=== PATIENT | female | born 1980 | race Caucasian/White ===

== ENCOUNTER → 2017-07-08 | Outpatient (CLI) | payer BC ==
--- NOTE | 2017-07-08 10:42 | DIAGNOSTIC IMAGING REPORT ---
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 TECHNIQUE: PA and lateral views of the chest were obtained. COMPARISON: 03/22/2016. FINDINGS: Cardiomediastinal silhouette normal. Lungs and pleural spaces clear. Osseous structures normal. Upper abdomen normal. IMPRESSION: 1. No acute cardiopulmonary disease. Electronically signed by: Rhys Matias M.D. 07/08/2017 10:40 AM Dictated Date/Time: 07/08/2017 10:39 AM
== END | disposition home or self-care (01) ==
LOC: C.RAD 09:39
PROVIDERS: ATTEND Family Medicine
DX: R76.12 Nonspecific reaction to cell mediated immunity measurement of gamma interferon antigen response without active tuberculosis (principal)

== ENCOUNTER 2024-11-19 16:53 | Observation (INO) ==
--- NOTE | 2024-11-19 17:21 | Emergency Department Note ---
Impression & Plan Transient cerebral ischemia, Headache, Complaint of paresthesia ED Provider Note NAME: AIDAN DAIGLE AGE: 44 SEX: F : 1980 ARRIVES VIA: Walk-In INFORMANT: Patient ED PROVIDER(S): Jet Ervin DO CHIEF COMPLAINT: Right-sided tingling HPI: Patient is a 44-year-old female who presents to the ER with a past medical history of of allergic reactions for right-sided headache which has been coming going for the past week. She notes that today around 12:00 she started noticing tingling around her right eye, on the right arm down to the elbow and on the right leg down to the knee. This comes and goes. Last for several seconds at a time. She denies any weakness. No chest pain or shortness of breath. No nausea, vomiting, or diarrhea. No dysuria, urgency, or frequency. ADDITIONAL HISTORY OBTAINED: Per HPI Chronic Medical/Social Conditions Affecting Care: Per HPI PAST MEDICAL HISTORY:See Below PAST SURGICAL HISTORY:See Below FAMILY HISTORY:See Below SOCIAL HISTORY:See Below HOME MEDICATIONS:See Below ALLERGIES:See Below VITALS:See Below PHYSICAL EXAMINATION: GENERAL: Sitting up in bed, alert, well appearing, well nourished, no distress, non-toxic EYE EXAM: normal conjunctiva. PERRL and EOM's intact. OROPHARYNX: no exudate, no erythema, lips, buccal mucosa, and tongue normal and mucous membranes are moist NECK: supple, no nuchal rigidity, no adenopathy, non-tender LUNGS: Clear to auscultation. Normal chest wall mechanics HEART: no murmurs, S1 normal and S2 normal ABDOMEN: abdomen soft, non-tender, normo-active bowel sounds, no masses, no rebound or guarding. BACK: Back is symmetrical on inspection and there is no deformity, no midline tenderness, no CVA tenderness. SKIN: no rashes and no bruising UPPER EXTREMITIES: upper extremities are grossly normal. LOWER EXTREMITIES: No pitting edema. NEURO EXAM: Normal sensorium, cranial nerves II-XII intact, normal speech, no weakness of arms, no weakness of legs. No drift. Finger to nose intact. Gross sensation intact. MEDICAL DECISION MAKING: Patient is a 44-year-old female who presents ER for the above-stated complaint. IV was established and blood work was obtained. [facility] acute care called in and noted right-sided facial tingling but no weakness. Upon arrival stroke alert was called by nursing staff in triage. Labs show no significant leukocytosis or anemia. INR was unremarkable. BMP with LFTs, bilirubin, and troponin was negative. CT angios of the head and neck were negative. [facility] evaluate the patient. He recommend admission for full stroke workup as well as aspirin and MRIs. Discussed case with the hospitalist for further evaluation management treatment. Consults/Care Managements Discussions: Per [facility] Triage Nursing notes reviewed. Limited review of prior medical records performed Vital Signs: reviewed and remarkable for no significant abnormalities Differential diagnosis: Differential Diagnosis includes but is not limited to ischemic Stroke, hemorrhagic stroke, bells palsy, mass, neoplasm, migraine headache, seizure, subarachnoid hemorrhage, TIA, and transient global amnesia. ER treatment provided: See below Diagnostics interpreted by me include EKG and cardiac monitoring as listed below: -Cardiac Monitoring: An order was placed for continuous cardiac monitoring. The monitor shows a rate of 80 with sinus rhythm. -ECG: Sinus rhythm rate of 65 Normal axis No PVCs QTc 430 -Laboratory studies:Interpreted by me as stated above in MDM and shown below. Imaging studies: Xrays: As interpreted by me:none CTs show: CT of the head per my preliminary interpreted and showed no obvious large bleed CT angios of the head and neck were negative per radiology Procedures:none Critical Care: None Past Med/Surg History Problem List (Updated 11/19/24 @ 23:20 by Jet Ervin DO) Complaint of paresthesia (Acute) Headache (Acute) Transient cerebral ischemia (Acute) Numbness of face Allergic reaction Allergic contact dermatitis Social History Smoking Status: Never smoker Preferred Language: Swedish Feels Safe at Home: Yes Allergies Allergies Allergy/AdvReac Type Severity Reaction Status Date / Time pollen extracts Allergy Congested Unverified 11/19/24 19:21 Home Meds Home Medications Medication Instructions Recorded Confirmed loratadine 10 mg tablet (Claritin) 10 mg PO DAILY PRN ALLERGIES 08/19/19 11/19/24 albuterol sulfate 90 mcg/actuation 1 puff inhalation . EVERY 4 TO 6 11/19/24 11/19/24 aerosol inhaler HOURS PRN CHEST TIGHTNESS estradiol 0.01% (0.1 mg/gram) 0.5 g vaginal TW 11/19/24 11/19/24 vaginal cream propranolol 10 mg tablet 10 mg PO . NEEDED PRN FOR 11/19/24 11/19/24 SITUATIONAL ANXIETY UP TO 2 A DAY vortioxetine 10 mg tablet 10 mg PO DAILY PRN DEPRESSION 11/19/24 11/19/24 (Trintellix) Results & Data (ED) Vital Signs Vital Signs - 24 hr 11/19/24 17:06 11/19/24 18:21 11/19/24 19:54 Temperature 36.7 C Temperature Source Temporal Artery Scan Pulse Rate 76 77 Pulse Rate [Apical] 78 Respiratory Rate 20 20 Respiratory Effort / Characteristics Non-Labored Spontaneous Respiratory Depth Normal Respiratory Pattern Regular Blood Pressure 112/74 Blood Pressure [Left Arm] 125/54 L Blood Pressure Mean 86 Blood Pressure Mean [Left Arm] 77 Blood Pressure Position [Left Arm] Sitting Pulse Oximetry 98 98 Oxygen Delivery Method Room Air Room Air Sepsis Recent Fever Within 48 Hours No Sepsis New/Unexplained Change in Mental Status N/A Sepsis Action Taken by Nursing No Action Required Laboratory Data 11/19/24 17:23 11/19/24 17:23 Lab Results 11/19/24 11/19/24 Range/Units 17:23 17:27 WBC 6.95 (4.8-10.8) K/ul RBC 6.12 H (4.20-5.40) M/uL Hgb 13.5 (12.0-16.0) g/dl POC Hgb 14.6 (12.0-16.0) g/dl Hct 42.3 (37.0-47.0) % POC Hct 43 (37-47) % MCV 69.1 L (80.0-100.0) fL MCH 22.1 L (25.0-34.0) pg MCHC 31.9 L (32.0-36.0) g/dL RDW Std Deviation 35.7 L (36.4-46.3) fL RDW Coeff of Gracy 14.6 H (11.5-14.5) % Plt Count 261 (130-400) K/uL MPV 10.8 (9.4-12.4) fL Immature Gran % (Auto) 0.1 % Neut % (Auto) 54.0 % Lymph % (Auto) 35.5 % [place] % (Auto) 8.3 % Eos % (Auto) 1.4 % Baso % (Auto) 0.7 % Neut # (Auto) 3.74 (1.40-6.50) K/uL Lymph # (Auto) 2.47 (1.20-3.40) K/uL [place] # (Auto) 0.58 (0.11-0.59) K/uL Eos # (Auto) 0.10 (0.00-0.50) K/uL Baso # (Auto) 0.05 (0.00-0.20) K/uL Immature Gran # (Auto) 0.01 (0.01-0.20) K/uL Microcytosis Present PT 11.3 (9.0-12.0) Seconds INR 1.0 (0.9-1.1) APTT 27 (21-31) Seconds PTT Ratio 1.0 POC Sodium 139 (135-144) mmol/L Sodium 140 (136-145) mmol/L POC Potassium 3.7 (3.3-5.0) mmol/L Potassium 3.7 (3.5-5.1) mmol/L POC Chloride 99 L (101-112) mmol/L Chloride 101 (98-107) mmol/L Carbon Dioxide 31 (21-32) mmol/L POC Total CO2 28 (24-31) mmol/L Anion Gap 8 (3-11) POC Anion Gap 16.0 (16-25) mmol/L POC BUN 11 (7-18) mg/dl BUN 12 (6-23) mg/dl Creatinine 0.62 (0.6-1.2) mg/dl POC Creatinine 0.7 (0.6-1.3) mg/dl Est Cr Clr Drug Dosing 118.3 ml/min eGFR 112.55 BUN/Creatinine Ratio 19.4 (10-20) Glucose 85 (70-99(Fasting)) mg/dl POC Glucose (other) 86 (70-99) mg/dl Calcium 9.4 (8.6-10.3) mg/dl POC Ioniz Calcium Liliana 1.16 (1.12-1.32) mmol/l Magnesium 1.8 (1.7-2.4) mg/dl Total Bilirubin 0.9 (0.2-1.0) mg/dl AST 17 (13-39) U/L ALT 12 (7-52) U/L Alkaline Phosphatase 49 (34-104) U/L Troponin I High Sens < 2.3 (0-14) pg/ml Total Protein 7.6 (6.0-8.3) gm/dl Albumin 4.5 (3.4-5.0) gm/dl Globulin 3.1 (2.5-4.0) gm/dl Albumin/Globulin Ratio 1.5 (0.9-2) Administered Medications Discontinued Medications Acetaminophen (Acetaminophen 325 Mg Tab) 650 mg PO NOW STA Stop: 11/19/24 19:14 Last Admin: 11/19/24 19:47 Dose: 650 mg Documented By: Aspirin (Aspirin Chew 324 Mg) 324 mg PO NOW STA Stop: 11/19/24 19:14 Last Admin: 11/19/24 19:47 Dose: 162.5 mg Documented By: Ioversol (Optiray 320 125ml) 115 ml IV ONCE ONE Stop: 11/19/24 17:32 Last Admin: 11/19/24 17:32 Dose: 115 ml Documented By: RUEL Imaging Data Radiologist's Impression: Head CT 11/19/24 17:18 EXAM: CT Head Without Intravenous Contrast INDICATION: Right numbness and tingling. TECHNIQUE: Axial computed tomography images of the head/brain without intravenous contrast. Sagittal and/or coronal reformats are provided. Sagittal and coronal reformatted images were created and reviewed. This CT exam was performed using one or more of the following dose reduction techniques: automated exposure control, adjustment of the mA and/or kV according to patient size, and/or use of iterative reconstruction technique. COMPARISON: No relevant prior studies available. FINDINGS: Limitations: None. Brain and extra-axial spaces: No abnormality noted. No hemorrhage. No significant white matter disease. No edema. No ventriculomegaly. Bones/joints: No acute changes. Soft tissues: No significant abnormality noted. Vasculature: No acute abnormality noted. Sinuses: No layering fluid in the visualized portions of the paranasal sinuses. Mastoid air cells: No mastoid effusion. Orbits: No significant abnormality noted. IMPRESSION: No abnormality noted. Findings discussed by phone with Dr. Ervin at 5:49 PM 11/19/2024. ACT 112: Negative or not required by law. Electronically signed by Agustina Campoverde 11-19-2024 5:52 PM Head CTA 11/19/24 17:18 EXAM: CT Angiography Head and Neck With Intravenous Contrast INDICATION: Right numbness and tingling. TECHNIQUE: [place] [facility] [place]/head and neck CT angiography protocol performed with intravenous contrast. Sagittal and coronal reformatted images were created and reviewed. This CT exam was performed using one or more of the following dose reduction techniques: automated exposure control, adjustment of the mA and/or kV according to patient size, and/or use of iterative reconstruction technique. MIP reconstructed images were created and reviewed. CONTRAST: 115ml of Optiray 320 was administered intravenously. COMPARISON: None. FINDINGS: HEAD: Right anterior cerebral artery: No abnormality noted. No occlusion or significant stenosis. Anterior communicating artery is present. No aneurysm. Right middle cerebral artery: No abnormality noted. No occlusion or significant stenosis. No aneurysm. Right posterior cerebral artery: No abnormality noted. No occlusion or significant stenosis. No aneurysm. Right intracranial internal carotid artery: No abnormality noted. No significant stenosis. No dissection or occlusion. Right intracranial vertebral artery: Dominant. No significant stenosis. No dissection or occlusion. Left anterior cerebral artery: Hypoplastic A1 segment with reconstitution via the communicating. No occlusion or significant stenosis. No aneurysm. Left middle cerebral artery: No abnormality noted. No occlusion or significant stenosis. No aneurysm. Left posterior cerebral artery: No abnormality noted. No occlusion or significant stenosis. No aneurysm. Left intracranial internal carotid artery: No abnormality noted. No significant stenosis. No dissection or occlusion. Left intracranial vertebral artery: Diminutive. No significant stenosis. No dissection or occlusion. Basilar artery: No abnormality noted. No occlusion or significant stenosis. No aneurysm. Other vasculature: No vascular malformation. Patent dural venous sinuses. NECK: Right common carotid artery: No abnormality noted. No significant stenosis. No dissection or occlusion. Right extracranial internal carotid artery: No abnormality noted. No significant stenosis. No dissection or occlusion. Right external carotid artery: No abnormality noted. No occlusion. Right extracranial vertebral artery: No abnormality noted. No significant stenosis. No dissection or occlusion. Left common carotid artery: No abnormality noted. No significant stenosis. No dissection or occlusion. Left extracranial internal carotid artery: No abnormality noted. No significant stenosis. No dissection or occlusion. Left external carotid artery: No abnormality noted. No occlusion. Left extracranial vertebral artery: Dominant. No significant stenosis. No dissection or occlusion. Lung apices: No significant abnormality noted. HEAD and NECK: Bones/joints: No significant abnormality. Soft tissues: No abnormality noted. CAROTID STENOSIS REFERENCE USING NASCET CRITERIA: % ICA stenosis = (1 - narrowest ICA diameter/diameter of distal cervical ICA) x 100. Mild - <50% stenosis. Moderate - 50-69% stenosis. Severe - 70-94% stenosis. Near occlusion - 95-99% stenosis. Occluded - 100% stenosis. IMPRESSION: Negative CTA carotid and CTA brain. Findings discussed by phone with Dr. Ervin at 5:49 PM 11/19/2024. ACT 112: Negative or not required by law. Electronically signed by Agustina Campoverde 11-19-2024 5:52 PM Neck CTA 11/19/24 17:18 EXAM: CT Angiography Head and Neck With Intravenous Contrast INDICATION: Right numbness and tingling. TECHNIQUE: [place] [facility] [place]/head and neck CT angiography protocol performed with intravenous contrast. Sagittal and coronal reformatted images were created and reviewed. This CT exam was performed using one or more of the following dose reduction techniques: automated exposure control, adjustment of the mA and/or kV according to patient size, and/or use of iterative reconstruction technique. MIP reconstructed images were created and reviewed. CONTRAST: 115ml of Optiray 320 was administered intravenously. COMPARISON: None. FINDINGS: HEAD: Right anterior cerebral artery: No abnormality noted. No occlusion or significant stenosis. Anterior communicating artery is present. No aneurysm. Right middle cerebral artery: No abnormality noted. No occlusion or significant stenosis. No aneurysm. Right posterior cerebral artery: No abnormality noted. No occlusion or significant stenosis. No aneurysm. Right intracranial internal carotid artery: No abnormality noted. No significant stenosis. No dissection or occlusion. Right intracranial vertebral artery: Dominant. No significant stenosis. No dissection or occlusion. Left anterior cerebral artery: Hypoplastic A1 segment with reconstitution via the communicating. No occlusion or significant stenosis. No aneurysm. Left middle cerebral artery: No abnormality noted. No occlusion or significant stenosis. No aneurysm. Left posterior cerebral artery: No abnormality noted. No occlusion or significant stenosis. No aneurysm. Left intracranial internal carotid artery: No abnormality noted. No significant stenosis. No dissection or occlusion. Left intracranial vertebral artery: Diminutive. No significant stenosis. No dissection or occlusion. Basilar artery: No abnormality noted. No occlusion or significant stenosis. No aneurysm. Other vasculature: No vascular malformation. Patent dural venous sinuses. NECK: Right common carotid artery: No abnormality noted. No significant stenosis. No dissection or occlusion. Right extracranial internal carotid artery: No abnormality noted. No significant stenosis. No dissection or occlusion. Right external carotid artery: No abnormality noted. No occlusion. Right extracranial vertebral artery: No abnormality noted. No significant stenosis. No dissection or occlusion. Left common carotid artery: No abnormality noted. No significant stenosis. No dissection or occlusion. Left extracranial internal carotid artery: No abnormality noted. No significant stenosis. No dissection or occlusion. Left external carotid artery: No abnormality noted. No occlusion. Left extracranial vertebral artery: Dominant. No significant stenosis. No dissection or occlusion. Lung apices: No significant abnormality noted. HEAD and NECK: Bones/joints: No significant abnormality. Soft tissues: No abnormality noted. CAROTID STENOSIS REFERENCE USING NASCET CRITERIA: % ICA stenosis = (1 - narrowest ICA diameter/diameter of distal cervical ICA) x 100. Mild - <50% stenosis. Moderate - 50-69% stenosis. Severe - 70-94% stenosis. Near occlusion - 95-99% stenosis. Occluded - 100% stenosis. IMPRESSION: Negative CTA carotid and CTA brain. Findings discussed by phone with Dr. Ervin at 5:49 PM 11/19/2024. ACT 112: Negative or not required by law. Electronically signed by Agustina Campoverde 11-19-2024 5:52 PM Discharge Plan Visit Data Chief Complaint: TIA Symptoms Stated Complaint: NUMBNESS RT SIDE, HEADACHE, PINS AND NEEDLES ED Provider: Jet Ervin Discharge Problem: Transient cerebral ischemia, Headache, Complaint of paresthesia Patient Disposition: Admitted As Inpatient Discharge Instructions Interventions: ED Discharge Assessment Last Done: 11/19/24 23:04 Discharge Problem: Transient cerebral ischemia Qualifiers: Transient cerebral ischemia type: other Qualified Code(s): G45.8 - Other transient cerebral ischemic attacks and related syndromes Headache Qualifiers: Headache type: unspecified Headache chronicity pattern: unspecified pattern
[2024-11-19] MEDS: OPTIRAY 320 125ml IV ONE (17:32)
[2024-11-19 17:39] LABS: iSTAT Creatinine 0.7 mg/dl (0.6-1.3); iSTAT Hemoglobin 14.6 g/dl (12.0-16.0); iSTAT Ionized Calcium 1.16 mmol/l (1.12-1.32); iSTAT Potassium 3.7 mmol/L (3.3-5.0)
[2024-11-19 17:42] LABS: Basophils # (auto) 0.05 K/uL (0.00-0.20); Basophils % (auto) 0.7 %; Eosinophils % (auto) 1.4 %; Hematocrit (blood only) 42.3 % (37.0-47.0); Hemoglobin 13.5 g/dl (12.0-16.0); Immature Granulocytes # (auto) 0.01 K/uL (0.01-0.20); Immature Granulocytes % (auto) 0.1 %; Lymphocytes # (auto) 2.47 K/uL (1.20-3.40); Lymphocytes % (auto) 35.5 %; Mean Corpuscular Hemoglobin 22.1 pg (25.0-34.0); Mean Corpuscular Hgb Conc 31.9 g/dL (32.0-36.0); Mean Corpuscular Volume 69.1 fL (80.0-100.0); Monocytes # (auto) 0.58 K/uL (0.11-0.59); Monocytes % (auto) 8.3 %; Neutrophils # (auto) 3.74 K/uL (1.40-6.50); RDW Coefficient of Variation 14.6 % (11.5-14.5); RDW Standard Deviation 35.7 fL (36.4-46.3); Red Blood Count 6.12 M/uL (4.20-5.40); White Blood Count 6.95 K/ul (4.8-10.8)
--- NOTE | 2024-11-19 17:52 | CT Scan Report ---
EXAM: CT Head Without Intravenous Contrast INDICATION: Right numbness and tingling. TECHNIQUE: Axial computed tomography images of the head/brain without intravenous contrast. Sagittal and/or coronal reformats are provided. Sagittal and coronal reformatted images were created and reviewed. This CT exam was performed using one or more of the following dose reduction techniques: automated exposure control, adjustment of the mA and/or kV according to patient size, and/or use of iterative reconstruction technique. COMPARISON: No relevant prior studies available. FINDINGS: Limitations: None. Brain and extra-axial spaces: No abnormality noted. No hemorrhage. No significant white matter disease. No edema. No ventriculomegaly. Bones/joints: No acute changes. Soft tissues: No significant abnormality noted. Vasculature: No acute abnormality noted. Sinuses: No layering fluid in the visualized portions of the paranasal sinuses. Mastoid air cells: No mastoid effusion. Orbits: No significant abnormality noted. IMPRESSION: No abnormality noted. Findings discussed by phone with Dr. Ervin at 5:49 PM 11/19/2024. ACT 112: Negative or not required by law. Electronically signed by Agustina Campoverde 11-19-2024 5:52 PM
--- NOTE | 2024-11-19 17:52 | CT Scan Report ---
EXAM: CT Angiography Head and Neck With Intravenous Contrast INDICATION: Right numbness and tingling. TECHNIQUE: [place] [facility]/head and neck CT angiography protocol performed with intravenous contrast. Sagittal and coronal reformatted images were created and reviewed. This CT exam was performed using one or more of the following dose reduction techniques: automated exposure control, adjustment of the mA and/or kV according to patient size, and/or use of iterative reconstruction technique. MIP reconstructed images were created and reviewed. CONTRAST: 115ml of Optiray 320 was administered intravenously. COMPARISON: None. FINDINGS: HEAD: Right anterior cerebral artery: No abnormality noted. No occlusion or significant stenosis. Anterior communicating artery is present. No aneurysm. Right middle cerebral artery: No abnormality noted. No occlusion or significant stenosis. No aneurysm. Right posterior cerebral artery: No abnormality noted. No occlusion or significant stenosis. No aneurysm. Right intracranial internal carotid artery: No abnormality noted. No significant stenosis. No dissection or occlusion. Right intracranial vertebral artery: Dominant. No significant stenosis. No dissection or occlusion. Left anterior cerebral artery: Hypoplastic A1 segment with reconstitution via the communicating. No occlusion or significant stenosis. No aneurysm. Left middle cerebral artery: No abnormality noted. No occlusion or significant stenosis. No aneurysm. Left posterior cerebral artery: No abnormality noted. No occlusion or significant stenosis. No aneurysm. Left intracranial internal carotid artery: No abnormality noted. No significant stenosis. No dissection or occlusion. Left intracranial vertebral artery: Diminutive. No significant stenosis. No dissection or occlusion. Basilar artery: No abnormality noted. No occlusion or significant stenosis. No aneurysm. Other vasculature: No vascular malformation. Patent dural venous sinuses. NECK: Right common carotid artery: No abnormality noted. No significant stenosis. No dissection or occlusion. Right extracranial internal carotid artery: No abnormality noted. No significant stenosis. No dissection or occlusion. Right external carotid artery: No abnormality noted. No occlusion. Right extracranial vertebral artery: No abnormality noted. No significant stenosis. No dissection or occlusion. Left common carotid artery: No abnormality noted. No significant stenosis. No dissection or occlusion. Left extracranial internal carotid artery: No abnormality noted. No significant stenosis. No dissection or occlusion. Left external carotid artery: No abnormality noted. No occlusion. Left extracranial vertebral artery: Dominant. No significant stenosis. No dissection or occlusion. Lung apices: No significant abnormality noted. HEAD and NECK: Bones/joints: No significant abnormality. Soft tissues: No abnormality noted. CAROTID STENOSIS REFERENCE USING NASCET CRITERIA: % ICA stenosis = (1 - narrowest ICA diameter/diameter of distal cervical ICA) x 100. Mild - <50% stenosis. Moderate - 50-69% stenosis. Severe - 70-94% stenosis. Near occlusion - 95-99% stenosis. Occluded - 100% stenosis. IMPRESSION: Negative CTA carotid and CTA brain. Findings discussed by phone with Dr. Ervin at 5:49 PM 11/19/2024. ACT 112: Negative or not required by law. Electronically signed by Agustina Campoverde 11-19-2024 5:52 PM
[2024-11-19 18:00] LABS: Alanine Aminotransferase 12 U/L (7-52); Albumin Globulin Ratio 1.5 (0.9-2); Albumin Level 4.5 gm/dl (3.4-5.0); Alkaline Phosphatase 49 U/L (34-104); Anion Gap 8 (3-11); Aspartate Aminotransferase 17 U/L (13-39); BUN Creatinine Ratio 19.4 (10-20); Bilirubin,Total 0.9 mg/dl (0.2-1.0); Blood Urea Nitrogen 12 mg/dl (6-23); Calcium 9.4 mg/dl (8.6-10.3); Carbon Dioxide 31 mmol/L (21-32); Chloride 101 mmol/L (98-107); Creatinine Clr Calc Pharmacy 118.3 ml/min; Globulin 3.1 gm/dl (2.5-4.0); Glucose 85 mg/dl (70-99(Fasting)); Magnesium 1.8 mg/dl (1.7-2.4); Potassium 3.7 mmol/L (3.5-5.1); Sodium 140 mmol/L (136-145); Total Protein 7.6 gm/dl (6.0-8.3)
[2024-11-19 18:05] LABS: Troponin I High Sensitivity < 2.3 pg/ml (0-14)
[2024-11-19 18:08] LABS: Partial Thromboplastin Time 27 Seconds (21-31); Prothrombin Time 11.3 Seconds (9.0-12.0)
[2024-11-19 18:22] LABS: Mean Platelet Volume 10.8 fL (9.4-12.4); Microcytosis Present; Platelet Count 261 K/uL (130-400)
[2024-11-19] MEDS: ACETAMINOPHEN 325 MG TAB PO STA (19:47)
[2024-11-19] MEDS: ASPIRIN CHEW 324 MG PO STA (19:47)
--- NOTE | 2024-11-19 20:32 | History & Physical Report ---
Date of Service November 19, 2024 Assessment & Plan (1) Numbness of face: Plan 44-year-old female PMHx asthma and anxiety presenting for right-sided numbness starting around 1200 hours on the day of arrival. No history of migraines. ED evaluation reveals no evidence of leukocytosis, normal H&H, WNL CMP, troponin less than 2.3; head CT, head CTA/neck CTA all WNL; EKG normal sinus rate 65 bpm. Telestroke consulted, recommended aspirin at that time. #Numbness/tingling R side Presenting with approximately 1 week of right-sided headache and associated right hand numbness with pins and needle sensation along right cheek, right neck, right arm, right leg to the level of the knee. Numbness/dndr-kdq-zichsif lasting from [id number] on the day of arrival. No history of migraines; never had this happen before. ? suspicion for TIA vs migrainous component. - Telestroke consulted; recommending aspirin and workup - Neurochecks + NIHSS - CT head/CTA head/neck WNL; Echo Bubble pending - A1c, lipids pending; Vitamin B12 + folate pending - Troponin <2.3; EKG normal sinus rate 65 bpm - Continue aspirin daily; Labetalol 10mg IV prn q10min if SBP > 200 - MRI pending #Anxiety/depression- Propranolol as needed, Trintellix Dispo: Admit, med/tele VTE prophylaxis: Lovenox This document was dictated utilizing [employer]. Please excuse any grammatical errors that may be secondary to use of this software. Admission and Anticipated Discharge Date Admission Date: 11/19/2024 History of Present Illness Chief Complaint: Numbness R side Primary Care Provider: Tamim Marquez DO 44-year-old female PMHx asthma and anxiety presenting for right-sided numbness starting around 1200 hours on the day of arrival. Patient states that approximately 1 week ago she started to notice headache that is described as a shocking sensation that was along the right side of her head extending down into her neck on the right side and would come and go throughout the week prior to arrival. Began to notice some numbness at the R eyebrow of the day prior to arrival, but on the day of arrival she was having tingling and pins and needle sensation in the R eyebrow, cheek, neck, arm, and leg to the level of the knee. States that the symptoms lasted from approximately noon to 1600 hrs on the day of arrival. She also notes that a "few days ago" at 3 AM she was awoken by right sided head pain that went away in approximately 1 hour on its own without intervention. States that she does get headaches quite often, but no diagnosis of migraines in the past. When headaches start, she does feel that her heart is beating stronger than normal. No symptoms at the time of evaluation. Denying chest pain, SOB, palpitations, abdominal pain, N/V/D/C, weakness, syncope, lightheadedness, or dizziness. No fever or chills. Never had this happen befo re. ED evaluation reveals no evidence of leukocytosis, normal H&H, WNL CMP, troponin less than 2.3; head CT, head CTA/neck CTA all WNL; EKG normal sinus rate [address] Rubio's attestation for adjustments/additions to treatment plan. Allergies Allergy/AdvReac Type Severity Reaction Status Date / Time pollen extracts Allergy Congested Unverified 11/19/24 19:21 Home Medications Medication Instructions Recorded Confirmed Type loratadine 10 mg tablet (Claritin) 10 mg PO DAILY PRN ALLERGIES 08/19/19 11/19/24 History albuterol sulfate 90 mcg/actuation 1 puff inhalation . EVERY 4 TO 6 11/19/24 11/19/24 History aerosol inhaler HOURS PRN CHEST TIGHTNESS estradiol 0.01% (0.1 mg/gram) 0.5 g vaginal TW 11/19/24 11/19/24 History vaginal cream propranolol 10 mg tablet 10 mg PO . NEEDED PRN FOR 11/19/24 11/19/24 History SITUATIONAL ANXIETY UP TO 2 A DAY vortioxetine 10 mg tablet 10 mg PO DAILY PRN DEPRESSION 11/19/24 11/19/24 History (Trintellix) ipaxducfqz-uhkzlswafbhuy-xeqvpyun 1 cap PO Q8H PRN headache #14 caps 11/20/24 Rx 50 mg-300 mg-40 mg capsule (Fioricet) Past Med/Surg History Problem List (Updated 11/20/24 @ 13:32 by Lashon Munoz PA-C) Migraine headache Complaint of paresthesia (Acute) Headache (Acute) Transient cerebral ischemia (Acute) Numbness of face Allergic reaction Allergic contact dermatitis Social History Smoking Status: Never smoker Hx Alcohol Use: No Hx Substance Use: No Preferred Language: Mohawk Communication Ability: Effective Grass Farmer Required: No Beliefs That Will Affect Care: None Current Living Situation: Spouse and Family Feels Safe at Home: Yes Assistive Devices: Glasses Review of Systems Review of Systems: All systems reviewed & are unremarkable except as noted in Subjective Physical Exam Physical Exam: General: No acute distress Skin: Warm and dry Head: Normocephalic, atraumatic Eyes: PERRL, conjunctivae clear, sclera non-icteric; EOM intact; wearing glasses ENT: External ear and ear canal without swelling; nose atraumatic; good dentition, tongue normal appearance, pharynx normal Neck: Supple, no LAD Cardio: RRR, no M/G/R, S1 and S2 normal Resp: No respiratory distress, Lungs CTA in all lobes bilaterally, no wheezes, rales, or rhonchi Abdomen: Soft, symmetric, nontender; No masses or hepatosplenomegaly; Bowel sounds normoactive MSK: No deformities, full ROM throughout; pulses palpable and equal; no edema. Neuro: II- PERRL, no VF deficits III, IV, - EOMs intact, no deviation, no nystagmus V- Normal sensation in all locations VII- No asymmetry VIII- Normal hearing to speech IX, X- Normal palatal elevation, no ulnar deviation XI- 5/5 head turn + shoulder shrug bilaterally XII- Midline tongue protrusion Motor: 5/5 strength throughout BUE/BLE; no pronator drift Reflexes: WNL throughout Sensory: Normal sensation throughout, no hemineglect, Romberg absent Coordination: Normal sxuktz-ju-wrqn, no tremor Gait: Unable to asses; no complaints Psych: Tearful and feeling "nervous"; Appropriate mood and affect; good judgement and insight. does come into room during time of visit. Results & Data Results & Data Vital Signs (Past 12 Hours) Vital Signs Temp Pulse Pulse Resp BP BP Pulse Ox 11/19/24 19:54 78 20 125/54 L 98 11/19/24 18:21 77 11/19/24 17:06 36.7 C 76 20 112/74 98 O2 Del Method 11/19/24 19:54 Room Air 11/19/24 18:21 11/19/24 17:06 Room Air Laboratory Results 11/19/24 11/19/24 17:27 17:23 WBC 6.95 RBC 6.12 H Hgb 13.5 POC Hgb 14.6 Hct 42.3 POC Hct 43 MCV 69.1 L MCH 22.1 L MCHC 31.9 L RDW Std Deviation 35.7 L RDW Coeff of Gracy 14.6 H Plt Count 261 MPV 10.8 Immature Gran % (Auto) 0.1 Neut % (Auto) 54.0 Lymph % (Auto) 35.5 [place] % (Auto) 8.3 Eos % (Auto) 1.4 Baso % (Auto) 0.7 Neut # (Auto) 3.74 Lymph # (Auto) 2.47 [place] # (Auto) 0.58 Eos # (Auto) 0.10 Baso # (Auto) 0.05 Immature Gran # (Auto) 0.01 Microcytosis Present PT 11.3 INR 1.0 APTT 27 PTT Ratio 1.0 POC Sodium 139 Sodium 140 POC Potassium 3.7 Potassium 3.7 POC Chloride 99 L Chloride 101 Carbon Dioxide 31 POC Total CO2 28 Anion Gap 8 POC Anion Gap 16.0 POC BUN 11 BUN 12 Creatinine 0.62 POC Creatinine 0.7 Est Cr Clr Drug Dosing 118.3 eGFR 112.55 BUN/Creatinine Ratio 19.4 Glucose 85 POC Glucose (other) 86 Calcium 9.4 POC Ioniz Calcium Liliana 1.16 Magnesium 1.8 Total Bilirubin 0.9 AST 17 ALT 12 Alkaline Phosphatase 49 Troponin I High Sens < 2.3 Total Protein 7.6 Albumin 4.5 Globulin 3.1 Albumin/Globulin Ratio 1.[address] 11/19/24 17:18 EXAM: CT Head Without Intravenous Contrast INDICATION: Right numbness and tingling. TECHNIQUE: Axial computed tomography images of the head/brain without intravenous contrast. Sagittal and/or coronal reformats are provided. Sagittal and coronal reformatted images were created and reviewed. This CT exam was performed using one or more of the following dose reduction techniques: automated exposure control, adjustment of the mA and/or kV according to patient size, and/or use of iterative reconstruction technique. COMPARISON: No relevant prior studies available. FINDINGS: Limitations: None. Brain and extra-axial spaces: No abnormality noted. No hemorrhage. No significant white matter disease. No edema. No ventriculomegaly. Bones/joints: No acute changes. Soft tissues: No significant abnormality noted. Vasculature: No acute abnormality noted. Sinuses: No layering fluid in the visualized portions of the paranasal sinuses. Mastoid air cells: No mastoid effusion. Orbits: No significant abnormality noted. IMPRESSION: No abnormality noted. Findings discussed by phone with Dr. Ervin at 5:49 PM 11/19/2024. ACT 112: Negative or not required by law. Electronically signed by Agustina Campoverde 11-19-2024 5:52 PM Head CTA 11/19/24 17:18 EXAM: CT Angiography Head and Neck With Intravenous Contrast INDICATION: Right numbness and tingling. TECHNIQUE: [facility] [place]/head and neck CT angiography protocol performed with intravenous contrast. Sagittal and coronal reformatted images were created and reviewed. This CT exam was performed using one or more of the following dose reduction techniques: automated exposure control, adjustment of the mA and/or kV according to patient size, and/or use of iterative reconstruction technique. MIP reconstructed images were created and reviewed. CONTRAST: 115ml of Optiray 320 was administered intravenously. COMPARISON: None. FINDINGS: HEAD: Right anterior cerebral artery: No abnormality noted. No occlusion or significant stenosis. Anterior communicating artery is present. No aneurysm. Right middle cerebral artery: No abnormality noted. No occlusion or significant stenosis. No aneurysm. Right posterior cerebral artery: No abnormality noted. No occlusion or significant stenosis. No aneurysm. Right intracranial internal carotid artery: No abnormality noted. No significant stenosis. No dissection or occlusion. Right intracranial vertebral artery: Dominant. No significant stenosis. No dissection or occlusion. Left anterior cerebral artery: Hypoplastic A1 segment with reconstitution via the communicating. No occlusion or significant stenosis. No aneurysm. Left middle cerebral artery: No abnormality noted. No occlusion or significant stenosis. No aneurysm. Left posterior cerebral artery: No abnormality noted. No occlusion or significant stenosis. No aneurysm. Left intracranial internal carotid artery: No abnormality noted. No significant stenosis. No dissection or occlusion. Left intracranial vertebral artery: Diminutive. No significant stenosis. No dissection or occlusion. Basilar artery: No abnormality noted. No occlusion or significant stenosis. No aneurysm. Other vasculature: No vascular malformation. Patent dural venous sinuses. NECK: Right common carotid artery: No abnormality noted. No significant stenosis. No dissection or occlusion. Right extracranial internal carotid artery: No abnormality noted. No significant stenosis. No dissection or occlusion. Right external carotid artery: No abnormality noted. No occlusion. Right extracranial vertebral artery: No abnormality noted. No significant stenosis. No dissection or occlusion. Left common carotid artery: No abnormality noted. No significant stenosis. No dissection or occlusion. Left extracranial internal carotid artery: No abnormality noted. No significant stenosis. No dissection or occlusion. Left external carotid artery: No abnormality noted. No occlusion. Left extracranial vertebral artery: Dominant. No significant stenosis. No dissection or occlusion. Lung apices: No significant abnormality noted. HEAD and NECK: Bones/joints: No significant abnormality. Soft tissues: No abnormality noted. CAROTID STENOSIS REFERENCE USING NASCET CRITERIA: % ICA stenosis = (1 - narrowest ICA diameter/diameter of distal cervical ICA) x 100. Mild - <50% stenosis. Moderate - 50-69% stenosis. Severe - 70-94% stenosis. Near occlusion - 95-99% stenosis. Occluded - 100% stenosis. IMPRESSION: Negative CTA carotid and CTA brain. Findings discussed by phone with Dr. Ervin at 5:49 PM 11/19/2024. ACT 112: Negative or not required by law. Electronically signed by Agustina Campoverde 11-19-2024 5:52 PM Neck CTA 11/19/24 17:18 EXAM: CT Angiography Head and Neck With Intravenous Contrast INDICATION: Right numbness and tingling. TECHNIQUE: [facility] [place]/head and neck CT angiography protocol performed with intravenous contrast. Sagittal and coronal reformatted images were created and reviewed. This CT exam was performed using one or more of the following dose reduction techniques: automated exposure control, adjustment of the mA and/or kV according to patient size, and/or use of iterative reconstruction technique. MIP reconstructed images were created and reviewed. CONTRAST: 115ml of Optiray 320 was administered intravenously. COMPARISON: None. FINDINGS: HEAD: Right anterior cerebral artery: No abnormality noted. No occlusion or significant stenosis. Anterior communicating artery is present. No aneurysm. Right middle cerebral artery: No abnormality noted. No occlusion or significant stenosis. No aneurysm. Right posterior cerebral artery: No abnormality noted. No occlusion or significant stenosis. No aneurysm. Right intracranial internal carotid artery: No abnormality noted. No significant stenosis. No dissection or occlusion. Right intracranial vertebral artery: Dominant. No significant stenosis. No dissection or occlusion. Left anterior cerebral artery: Hypoplastic A1 segment with reconstitution via the communicating. No occlusion or significant stenosis. No aneurysm. Left middle cerebral artery: No abnormality noted. No occlusion or significant stenosis. No aneurysm. Left posterior cerebral artery: No abnormality noted. No occlusion or significant stenosis. No aneurysm. Left intracranial internal carotid artery: No abnormality noted. No significant stenosis. No dissection or occlusion. Left intracranial vertebral artery: Diminutive. No significant stenosis. No dissection or occlusion. Basilar artery: No abnormality noted. No occlusion or significant stenosis. No aneurysm. Other vasculature: No vascular malformation. Patent dural venous sinuses. NECK: Right common carotid artery: No abnormality noted. No significant stenosis. No dissection or occlusion. Right extracranial internal carotid artery: No abnormality noted. No significant stenosis. No dissection or occlusion. Right external carotid artery: No abnormality noted. No occlusion. Right extracranial vertebral artery: No abnormality noted. No significant stenosis. No dissection or occlusion. Left common carotid artery: No abnormality noted. No significant stenosis. No dissection or occlusion. Left extracranial internal carotid artery: No abnormality noted. No significant stenosis. No dissection or occlusion. Left external carotid artery: No abnormality noted. No occlusion. Left extracranial vertebral artery: Dominant. No significant stenosis. No dissection or occlusion. Lung apices: No significant abnormality noted. HEAD and NECK: Bones/joints: No significant abnormality. Soft tissues: No abnormality noted. CAROTID STENOSIS REFERENCE USING NASCET CRITERIA: % ICA stenosis = (1 - narrowest ICA diameter/diameter of distal cervical ICA) x 100. Mild - <50% stenosis. Moderate - 50-69% stenosis. Severe - 70-94% stenosis. Near occlusion - 95-99% stenosis. Occluded - 100% stenosis. IMPRESSION: Negative CTA carotid and CTA brain. Findings discussed by phone with Dr. Ervin at 5:49 PM 11/19/2024. ACT 112: Negative or not required by law. Electronically signed by Agustina Campoverde 11-19-2024 5:52 PM Medications Administered Aspirin 324 mg p.o. x 1 Acetaminophen 650 mg p.o. x 1 ECG Additional Comments: NSR 65 bpm, CA is 164, QRS 96, QT/QTc 414/430, PRT 46/60/59 Code Status & VTE Plan Code Status Full VTE Prophylaxis Plan VTE Prophylaxis will be ordered: Yes Supervising Physician Co-Signing Physician Notes Attending addendum: I have physically seen this patient, have supervised the ALESHA's activities, and agree with the H&P unless as otherwise noted. Assessment and Plan: The patient is a 44-year-old female with past medical history of asthma and anxiety, who underwent a telestroke evaluation prior to referral for admission, due to symptoms of 1 week of right-sided headache, right hand numbness with pins and needle sensation along right cheek, right neck, right arm and right leg to the level of the knee. Upon presentation stroke alert was called while in the emergency department waiting room, with negative imaging of CT scan of head and CTA head and neck. Recommendation from telestroke was for admission and further workup including MRI. #Strokelike symptoms- The patient will be admitted to telemetry for serial cardiac enzymes, serial EKG's, cardiac rhythm monitoring and a 2-D echocardiogram with Dopplers. CT head, CTA head and neck all negative Stroke without thrombolytic order set Consult PT/OT/speech/neurology Aspirin 324 mg now and then 81 mg daily as noted Permissive hypertension MRI brain without contrast Ordering hemoglobin A1c, fasting lipid panel B12 and folate levels as noted Anxiety/depression-continue propranolol, Trintellix PG Care Time/CCT Total # of Minutes Spent Total Time Spent with Patient: Total time spent is greater than 50% in coordination of care (as documented) at patient's floor/unit and/or counseling patient: Coding Level of Care Code 66122 INT INP/OBS CARE 3/75MIN Diagnoses Numbness of face R20.0
[2024-11-19] MEDS ORDERED: LABETALOL HCL IV 5 MG/ML 20ML IV PRN (23:05)
[2024-11-19] MEDS ORDERED: LORATADINE 10 MG TAB PO PRN (23:05)
[2024-11-19] MEDS ORDERED: ALBUTEROL HFA 8 GM INHALER INH PRN (23:05)
[2024-11-19] MEDS ORDERED: MELATONIN 3 MG TAB PO PRN (23:05)
[2024-11-19] MEDS ORDERED: PROPRANOLOL HCL 10 MG TAB PO PRN (23:05)
[2024-11-19] MEDS ORDERED: ONDANSETRON INJ 2 MG/ML 2 ML VIAL IV PRN (23:05)
[2024-11-19] MEDS ORDERED: POLYETHYLENE (MIRALAX) 17 GM PACK PO PRN (23:05)
--- OUTSIDE RECORDS SUMMARY | 2024-11-19 23:16 | External Medical Summary | Summary of Care ---
Author Name Unknown Organization [facility] Address [address] [place] [address] Phone [phone] Care Team Providers Care Deputy Fire Chief Name Role Phone Tammi Marquez Shanteniko Walsh DO Primary Car e Provider Encounter Details Date Type Department Care Team (Late st Contact Info) Description 10/20/2024 Population Health External Data Unspecified Department Allergies Active Allergy Reactions Criticality Noted Date Comments Pollen Other (Please comment) High 04/08/2019 documented as of this encounter (statuses as of 10/20/2024) Medications Spacer/Aero-Hol ding Chambers DeviceIndicatio ns:COVID-19,SOB (shortness of breath) Use with inhaler. 1 Each 2 Active Additional Information Patient not taking.Reported on 10/08/2023 Albuterol Sulfate HFA 108 (90 Base) MCG/ACT Inhalation Aerosol Solution 2 Active Pulmicort Flexhaler 180 MCG/ACT Inhalation Aerosol Powder Breath Activated (Budesonide) Inhale 2 Puffs by mouth in the morning and 2 Puffs before bedtime. Rinse mouth and gargle with water after use.. 3 Each 3 10/08/2023 6:49 PM EST 4 Active Additional Information Patient not taking.Reported on 08/25/2024 Propranolol HCl 10 MG Oral Tablet (Inderal) Take 1 Tablet by mouth 2 times a day as needed for Anxiety. Active Acetaminophen 325 MG Oral Tablet (Tylenol) Take 2 Tablets by mouth every 4 hours as needed for mild pain. Do not exceed 4 doses in 24 hours. 30 Tablet 10/21/2023 5:42 PM EST 4 Active Additional Information Patient not taking.Reported on 08/25/2024 Ibuprofen 200 MG Oral Tablet (Motrin) Take 3 Tablets by mouth every 6 hours as needed for Mild Pain. 30 Tablet 10/21/2023 5:42 PM EST 4 Active Additional Information Patient not taking.Reported on 08/25/2024 Trintellix 5 MG Oral Tablet (Vortioxetine HBr) Take by mouth. Activ e Trintellix 10 MG Oral Tablet (Vortioxetine HBr) 1 by mouth every day 30 Tablet 1 02/04/2024 1:19 PM EDT 4 Active Trintellix 10 MG Oral Tablet (Vortioxetine HBr) take 1 tablet by mouth every day 90 Tablet 1 03/08/2024 10:06 AM EDT 4 Active Estradiol 0.1 MG/GM Vaginal Cream (Estrace) use 1/2 gram vaginally twice weekly 42.5 g 3 03/08/2024 10:06 AM EDT 4 Active documented as of this encounter (statuses as of 10/20/2024) Active Problems Problem Noted Date Diagnosed Date Knee pain, right 06/22/2024 Termination of (fetus) 10/21/2023 Multigravida of advanced maternal age in first t rimester 10/06/2023 Maternal asthma complicating 4 History of breast biopsy 10/06/2023 Anxiety during 10/06/2023 Reactive airway disease documented as of this encounter (statuses as of 10/20/2024) Immunizations Name Administration Dates Next Due MMR - Measles/Mumps/Rubella Vaccine 03/27/2016 Seasonal Influenza Virus Vac cine, Unspecified Formulation 07/16/2017 TDAP, Age 7 and older, IM (Adacel) 03/27/2016 documented as of this encounter Social History Tobacco Use Types Packs/Day Years Used Date Smoking Tobacco: Never Smokeless Tobacco: Never Alcohol Use Standard Drinks/Week Comments Never 0 (1 standard drink = 0.6 oz pur e alcohol) Hunger Vital Sign Answer Date Recorded Within the past 12 months, y ou worried that your food would run out before you got the money to buy more. Never true 10/02/19 24 Within the past 12 months, t he food you bought just didn't last and you didn't have money to get more. Never true 10/02/2023 Childcare Answer Date Recorded Do you feel overwhelmed with taking care of a child, family member or friend? No 10/02/2023 Does your family need help f inding childcare? (Household - for ages 0-17 years) Not on file 10/02/2023 Clothing Answer Date Recorded Have you been unable to get clothing when it was really needed? No 10/02/2023 Is your family able to get c lothes or diapers when needed? (Household - for ages 0-17 years) Not on file 10/02/2023 Personal Safety Answer Date Recorded Do you feel unsafe or have concerns for your saf ety? No 10/02/2023 Do you have concerns for you r family's safety? (Household - for ages 0-17 years) Not on file 10/02/2023 Utilities Answer Date Recorded Do you have trouble paying y our heating, water, or electric bill? No 10/02/2023 Is your family able to pay t he heat, water, or electric bill? (Household - for ages 0-17 years) Not on file 10/02/2023 Does your family have access to good internet? (Household - for ages 0-17 years) Not on file 10/02/2023 Employment Status Answer Date Recorded Are you unemployed or without regular income? No 10/02/2023 Does the household have a re gular source of income? (Household - for ages 0-17 years) Not on file 10/02/2023 Social Connections Answer Date Recorded How often do you feel lonely or isolated from th ose around you? Never 10/02/2023 Financial Resource Strain Answer Date R ecorded Do you have any trouble payi ng for your medications, or do you think you might in the future? No 10/02/2023 Does your family have troubl e paying for medicine? (Household - for ages 0-17 years) Not on file 10/02/2023 Transportation Needs Answer Date Record ed READ ONLY Do you have troubl e getting a ride to medical visits or work? Never True 10/02/2023 Does your family have a hard time getting a ride to doctors visits? (Household - for ages 0-17 years) Not on file 10/02/2023 Has lack of transportation k ept you from medical appointments, meetings, work, or from getting things needed for daily living? Check all that apply. (Adult - for ages 18 years and over) Not on file 10/02/2023 Do you (or your family) have trouble finding or paying for a ride (transportation)? (Household - for ages 0-17 years) Not on file 10/02/2023 Housing Stability Answer Date Recorded Do you currently live in a s helter or have no steady place to sleep at night? No 10/02/2023 READ ONLY Do you think you a re at risk of becoming homeless? No 10/02/2023 Does your family worry about paying for your home or becoming homeless? (Household - for ages 0-17 years) Not on file 0 10/02/2023 Are you homeless or worried that you might be in the future? (Adult - for ages 18 years and over) Not on file Are you (or your family) becka eless or worried that you might be in the future? (Household - for ages 0-17 years) Not on file Food Insecurity Answer Date Recorded Do you need food for this week? No 10/02/2023 Are you able to get enough f ood for your family? (Household - for ages 0-17 years) Not on file 10/02/2023 Does your family need food t his week? (Household - for ages 0-17 years) Not on file 10/02/2023 Do you always have enough fo od for your family? (Household - for ages 0-17 years) Not on file 10/02/2023 Comments No Sex and Gender Information Value Date Recorded Sex Assigned at Female 10/02/2023 6:13 AM EST Legal Sex Female 4:28 PM EST Gender Identity Female 10/02/2023 6:13 AM EST Sexual Orientation Straight 10/02/2023 6: 13 AM EST documented as of this encounter Plan of Treatment Health Maintenance Due Date Last Done Comments Lipid Panel 1980 Depression Screening 1992 HIV Screening 1995 Hepatitis C Screening 1998 Hepatitis B Vaccine (1 of 3 - 19+ 3-dose series) 1999 Pneumococcal Vaccine: Pediatrics (0 to 5 Years) and At-Risk Patients (6 to 18 Years and 19+ Years) (1 of 2 - PCV) 1999 *SPIROMETRY ONCE FOR ASTHMA-ADULT 10/08/2023 Mammogram 11/26/2023 11/26/2022, 10/31, 11/05/2022, Additional history exists COVID-19 Vaccine ( - season) 2024 Influenza Vaccine (FLU shot) (#1) 2024 07/16/2017 Diabetes Screening 05/23/2025 05/23/2022, 0 05/23/2022, 12/27/2020, Additional history exists Pap Smear 09/24/2025 09/24/2022 DTap/Tdap Vaccines (2 - Td or Tdap) 03/27/2026 03/27/2016 Cervical Cancer Screening 09/24/2027 HPV/Co-Test 09/24/2027 09/24/2022 HPV (Gardasil) Vaccine Aged Out No lo nger eligible based on patient's age to complete this topic MENINGOCOCCAL (MENACTRA/MENVEO) Aged Out No longer eligible based on patient's age to complete this topic documented as of this encounter Medical Devices Not on filedocumented as of this encounter Care Teams Deputy Fire Chief Relationship Specialty Start Date End Date Tammi Marquez DO [address] [facility] [place] [address] PCP - General Family Medicine 12/23/21 documented as of this encounter
--- OUTSIDE RECORDS SUMMARY | 2024-11-19 23:16 | External Medical Summary | Summary of Care ---
Author Name Unknown Organization [facility] Address [address] [facility] [place] [address] Phone [phone] Care Team Providers Care Companion Name Role Phone AlmaBarryTammidevante Frey Kerenkevin DO Primary Car e Provider Reason for Visit * Reason Onset Date Comments Appointment 11/18/2024 Encounter Details Date Type Department Care Team (Late st Contact Info) Description 11/18/2024 Telephone Orthopaedics [facility] [address] [place] [id number] SharerGrace PA-C [address] [place] [address] Appointment Allergies Active Allergy Reactions Criticality Noted Date Comments Pollen Other (Please comment) High 04/08/2019 documented as of this encounter (statuses as of 11/18/2024) Medications Spacer/Aero-Hol ding Chambers DeviceIndicatio ns:COVID-19,SOB (shortness [...] as of this encounter (statuses as of 11/18/2024) Active Problems Problem Noted Date Diagnosed Date Knee pain, right 06/22/2024 Termination of (fetus) 10/21/2023 Multigravida of advanced maternal age in first t rimester 10/06/2023 Maternal asthma complicating 4 History of breast biopsy 10/06/2023 Anxiety during 10/06/2023 Reactive airway disease documented as of this encounter (statuses as of 11/18/2024) Immunizations Name Administration Dates Next Due MMR [...] AM EST documented as of this encounter Miscellaneous Notes * Telephone Encounter - Bruna Reddy PHARM Tech - 11/18/2024 8:52 AM EST Pt calling in to schedule an appointment with Orthopedics. Transferred pt to Specialty Line. Thank you, Bruna Reddy Wet Roaster [facility] 11/18/2024,8:53 AM documented in this encounter Plan of Treatment Health Maintenance [...] on patient's age to complete this topic Meningitis B Vaccine (Bexsero/Trumemba) Aged Out No longer eligible based on patient's age to complete this topic documented as of this encounter Medical Devices Not on filedocumented as of this encounter Care Teams Companion Relationship Specialty Start Date End Date Tammi Marquez DO [address] [place] [address] PCP - General Family Medicine 12/23/21 documented as of this encounter
--- OUTSIDE RECORDS SUMMARY | 2024-11-19 23:16 | External Medical Summary | Summary of Care ---
Author Name Unknown Organization [facility] Address [address] [place] [address] Phone [phone] Care Team Providers Care Wage Hand Name Role Phone Barry Marquezdevante Frey Kerenarlet DO Primary Car e Provider Encounter Details Date Type Department Care Team (Late st Contact Info) Description 06/22/2024 Orders Only Radiology [address] [place] [address] Requisition, External Radiology [address] [place] [address] Knee pain, right* Allergies Active Allergy Reactions Criticality Noted Date Comments Pollen Other (Please comment) High 04/08/2019 documented as of this encounter (statuses as of 06/22/2024) Medications Medication Sig Dispensed Refills Start Date End Date Status Spacer/Aero-Holding Chambers DeviceIndications:C OVID-19,SOB (shortness of breath) Use with inhaler. 1 Each 03/15/2022 Active Additional Information Patient not taking.Reported on 10/08/2023 Albuterol Sulfate HFA 108 (90 Base) MCG/ACT Inhalation Aerosol Solution 12/30/2021 Active Pulmicort Flexhaler 180 MCG/ACT Inhalation Aerosol Powder Breath Activated (Budesonide) Inhale 2 Puffs by mouth in the morning and 2 Puffs before bedtime. Rinse mouth and gargle with water after use.. 3 Each 3 10/07/2023 Active Additional Information Patient not taking.Reported on 10/08/2023 Propranolol HCl 10 MG Oral Tablet (Inderal) Take 1 Tablet by mouth 2 times a day as needed for Anxiety. Active Acetaminophen 325 MG Oral Tablet (Tylenol) Take 2 Tablets by mouth every 4 hours as needed for mild pain. Do not exceed 4 doses in 24 hours. 30 Tablet 10/21/2023 Active Additional Information Patient not taking.Reported on 11/04/2023 Ibuprofen 200 MG Oral Tablet (Motrin) Take 3 Tablets by mouth every 6 hours as needed for Mild Pain. 30 Tablet 10/21/2023 Active Additional Information Patient not taking.Reported on 11/04/2023 Trintellix 5 MG Oral Tablet (Vortioxetine HBr) Take by mouth. Ac tive Trintellix 10 MG Oral Tablet (Vortioxetine HBr) 1 by mouth every day 30 Tablet 1 02/03/2024 Active Trintellix 10 MG Oral Tablet (Vortioxetine HBr) take 1 tablet by mouth every day 90 Tablet 1 03/03/2024 Active Estradiol 0.1 MG/GM Vaginal Cream (Estrace) use 1/2 gram vaginally twice weekly 42.5 g 3 03/03/2024 Active documented as of this encounter (statuses as of 06/22/2024) Active Problems Problem Noted Date Diagnosed Date Knee pain, right 06/22/2024 Termination of (fetus) 10/21/2023 Multigravida of advanced maternal age in first t rimester 10/06/2023 Maternal asthma complicating 4 History of breast biopsy 10/06/2023 Anxiety during 10/06/2023 Reactive airway disease Estimated Date of Delivery Comme nts Yes 05/05/2024 Based on Ultraso und documented as of this encounter (statuses as of 06/22/2024) Immunizations Name Administration Dates Next Due MMR [...] the money to buy more. Never true 01/04/20 24 Within the past 12 months, t [...] ages 0-17 years) Not on file 10/02/2023 Estimated Date of Delivery Comme nts Yes 05/05/2024 Based on Ultraso und Sex and Gender Information Value Date Recorded Sex Assigned at Female 10/02/2023 6:13 AM EST Gender Identity Female 10/02/2023 6:13 AM EST Sexual Orientation Straight 10/02/2023 6: 13 AM EST Job Start Date Occupation Industry Not on file Not on file Not on file documented as of this encounter Plan of Treatment Pending Results Name Type Priority Associated Diagnoses Date /Time XR KNEE 3 VIEWS Medical Imaging Routine Knee pain, right 06/22/2024 10:21 AM EDT Health Maintenance Due Date Last Done Comments Lipid Panel 1980 Pneumococcal Vaccine: Pediatrics (0 to 5 Years) and At-Risk Patients (6 to 64 Years) (1 of 2 - PCV) 1986 Depression Screening 1992 HIV Screening 1995 Hepatitis C Screening 1998 Hepatitis B Vaccine (1 of 3 - 19+ 3-dose series) 1999 *SPIROMETRY ONCE FOR ASTHMA-ADULT 10/08/2023 Mammogram [...] Not on filedocumented as of this encounter Visit Diagnoses Diagnosis Knee pain, right- Primary Pain in joint, lower leg documented in this encounter Care Teams Wage Hand Relationship Specialty Start Date End Date Tammi Marquez DO [facility] [place] [address] PCP - General Family Medicine 12/23/21 documented as of this encounter
--- OUTSIDE RECORDS SUMMARY | 2024-11-19 23:16 | External Medical Summary | Summary of Care ---
Author Name Unknown Organization [facility] Address [address] [place] [address] Phone [phone] Care Team Providers Care Supply Chain Director Name Role Phone Tammi Marquez DO Primary Car e Provider Reason for Visit * Reason Onset Date Comments MyCode - Took Form To Consider 08/25/2024 Encounter Details Date Type Department Care Team (Late st Contact Info) Description 08/25/2024 Orders Only Outcomes Research Department [address] [place] [address] Yady Moody CHRA MyCode Nonconsent Documentation Allergies Active Allergy Reactions Criticality Noted Date Comments Pollen Other (Please comment) High 04/08/2019 documented as of this encounter (statuses as of 08/25/2024) Medications Spacer/Aero-Hol ding Chambers DeviceIndicatio ns:COVID-19,SOB (shortness [...] 3 03/08/2024 10:06 AM EDT 4 Active Phentermine HCl 37.5 MG Oral Tablet take 1/2 tablet by mouth twice a day 30 Tablet 07/02/2024 2:35 PM EDT 4 Active documented as of this encounter (statuses as of 08/25/2024) Active Problems Problem Noted Date Diagnosed Date Knee pain, right 06/22/2024 Termination of (fetus) 10/21/2023 Multigravida of advanced maternal age in first t rimester 10/06/2023 Maternal asthma complicating 4 History of breast biopsy 10/06/2023 Anxiety during 10/06/2023 Reactive airway disease documented as of this encounter (statuses as of 08/25/2024) Immunizations Name Administration Dates Next Due MMR [...] AM EST documented as of this encounter Progress Notes * Yady Moody CHRA - 08/25/2024 10:19 AM EST MyCode Nonconsent Documentation Elsa Danielson was approached in the clinic regarding participation in the MyCode Project and didnot consent. documented in this encounter Plan of Treatment Upcoming Encounters Date Type Department Care Team (Late st Contact Info) Description 08/25/2024 11:30 AM EST Imaging Radiology [facility], [address] [place] [address] Arrived Health Maintenance Due Date Last Done Comments [...] filedocumented as of this encounter Care Teams Supply Chain Director Relationship Specialty Start Date End Date Tammi Marquez DO [address] [place] [address] PCP - General Family Medicine 12/23/21 documented as of this encounter
--- OUTSIDE RECORDS SUMMARY | 2024-11-19 23:16 | External Medical Summary | Summary of Care ---
Author Name Unknown Organization [facility] Address [address] [facility] [place] [address] Phone [phone] Care Team Providers Care Hoisting Laborer Name Role Phone Tammi Marquez Shante Kerenarlet DO Primary Car e Provider Reason for Referral * Evaluate & Treat - Unlimited Visits (Within 30 days (routine)) - Authorized Specialty Diagnoses / Procedures Referred By Iza blake Referred To Contact Physical Therapy / Physical Medicine And Rehab Diagnoses Patellofemoral pain syndrome of right knee Grace Collins PA-C [address] [place] [address] Phone: tel: fax: Referral ID Status Reason Start Date Expiration Date Visits Requested Visits Authorized [id number] Authorized Specialty Services Required 4 [phone] Question Answer Referral Priority Within 30 days (routine) Where should this appointment be scheduled? External Comments R knee PFS Quad program with VMO emphasis Levi taping No open chain quad exercises 2x week for 4-6 weeks with home program Reason for Visit * Reason Comments NEW PATIENT R knee injury Pain Encounter Details Date Type Department Care Team (Latest Contact Info) Description 08/25/2024 10:30 AM EST Office Visit Orthopaedics [facility] [address] [place] [address] Grace Collins PA-C [address] [place] [address] Patellofemoral pain syndrome of right knee* Allergies Active Allergy Reactions Criticality Noted Date [...] AM EST documented as of this encounter Patient Instructions * Patient Instructions* Grace Collins PA-C - 08/25/2024 11:07 AM EST Encounter Diagnoses Name Primary? Patellofemoral pain syndrome of right knee Yes [email or web address] Ice PT Lateral J brace documented in this encounter Progress Notes * Grace Collins PA-C - 08/25/2024 10:55 AM EST Elsa Danielson is a 43 year old female who presents for consultation to [facility] for right knee injury/pain. Consult requested by Self . Elsa Danielson is here unaccompanied History: Elsa Danielson reports that right knee pain started yesterday. Patient states she developed pain while walking downstairs. She was now having difficulty with ambulation and presents today in a wheelchair. She complains of anterior knee pain. No instability or locking. She denies any previous history of knee pain. Review of systems: All others negative except those noted above in HPI. Review of patient's allergies indicates: Allergen Reactions Environmental [Pollen] Other (Please comment) Current Outpatient Medications Medication Sig Dispense Refill Spacer/Aero-Holding Chambers Device Use with inhaler. (Patient not taking: Reported on 10/08/2023) 1Each 0 Albuterol Sulfate HFA 108 (90 Base) MCG/ACT Inhalation Aerosol Solution Pulmicort Flexhaler 180 MCG/ACT Inhalation Aerosol Powder Breath Activated (Budesonide) Inhale 2 Puffs by mouth in the morning and 2 Puffs before bedtime. Rinse mouth and gargle with water after use.. (Patient not taking: Reported on 08/25/2024) 3 Each 3 Propranolol HCl 10 MG Oral Tablet (Inderal) Take 1 Tablet by mouth 2 times a day as needed for Anxiety. Acetaminophen 325 MG Oral Tablet (Tylenol) Take 2 Tablets by mouth every 4 hours as needed for mildpain. Do not exceed 4 doses in 24 hours. (Patient not taking: Reported on 08/25/2024) 30 Tablet 0 Ibuprofen 200 MG Oral Tablet (Motrin) Take 3 Tablets by mouth every 6 hours as needed for Mild Pain. (Patient not taking: Reported on 08/25/2024) 30 Tablet 0 Trintellix 5 MG Oral Tablet (Vortioxetine HBr) Take by mouth. Trintellix 10 MG Oral Tablet (Vortioxetine HBr) 1 by mouth every day 30 Tablet 1 Trintellix 10 MG Oral Tablet (Vortioxetine HBr) take 1 tablet by mouth every day 90 Tablet 1 Estradiol 0.1 MG/GM Vaginal Cream (Estrace) use 1/2 gram vaginally twice weekly 42.5 g 3 Phentermine HCl 37.5 MG Oral Tablet take 1/2 tablet by mouth twice a day 30 Tablet 0 No current facility-administered medications for this visit. Past Medical History: Diagnosis Date Reactive airway disease Patient Active Problem List Diagnosis Reactive airway disease Multigravida of advanced maternal age in first trimester Maternal asthma complicating History of breast biopsy Anxiety during Termination of (fetus) Knee pain, right Past Surgical History: Procedure Laterality Date , INDUCED BY D&E N/A 10/21/2023 INDUCED BY DILATION AND EVACUATION performed by Deven Valle Jr., MD at [place] [facility] [place] US GUIDED BREAST BIOPSY LEFT Left 12/05/2022 results pending Social History Socioeconomic History Marital status: Spouse name: Not on file Number of children: Not on file Years of education: Not on file Highest education level: Not on file Occupational History Not on file Tobacco Use Smoking status: Never Smokeless tobacco: Never Vaping Use Vaping status: Never Used Substance and Sexual Activity Alcohol use: Never Drug use: Never Sexual activity: Yes Partners: Male Other Topics Concern Not on file Social History Narrative Not on file Social Needs Financial Resource Strain: Low Risk (10/02/2023) Financial Resource Strain Do you have any trouble paying for your medications, or do you think you might in the future? (Adult - for ages 18 years and over): No Does your family have trouble paying for medicine? (Household - for ages 0-17 years): Not on file Food Insecurity: No Food Insecurity (10/02/2023) Food Insecurity Do you need food for this week? (Adult - for ages 18 years and over): No Are you able to get enough food for your family? (Household - for ages 0-17 years): Not on file Does your family need food this week? (Household - for ages 0-17 years): Not on file Do you always have enough food for your family? (Household - for ages 0-17 years): Not on file Transportation Needs: No Transportation Needs (10/02/2023) Transportation Needs Do you have trouble getting a ride to medical visits or work? (Adult - for ages 18 years and over):Never True Does your family have a hard time getting a ride to doctors visits? (Household - for ages 0-17 years): Not on file Has lack of transportation kept you from medical appointments, meetings, work, or from getting things needed for daily living? Check all that apply. (Adult - for ages 18 years and over): Not on file Do you (or your family) have trouble finding or paying for a ride (transportation)? (Household - for ages 0-17 years): Not on file Social Connections: Socially Integrated (10/02/2023) Social Connections How often do you feel lonely or isolated from those around you? (Adult - for ages 18 years and over): Never Housing Stability: Low Risk (10/02/2023) Housing Stability Do you currently live in a long term or have no steady place to sleep at night? (Adult - for ages 18 years and over): No Do you think you are at risk of becoming homeless? (Adult - for ages 18 years and over): No Does your family worry about paying for your home or becoming homeless? (Household - for ages 0-17 years): Not on file Are you homeless or worried that you might be in the future? (Adult - for ages 18 years and over): Not on file Are you (or your family) homeless or worried that you might be in the future? (Household - for ages0-17 years): Not on file Family History Problem Relation Name Age of Onset Diabetes Father Breast Cancer No significant family history Family History; none relevant to today's HPI Objective: Physical Exam There were no vitals filed for this visit. Estimated body mass index is 32.2 kg/m as calculated from the following: Height as of an earlier encounter on 08/25/24: 1.626 m (5' 4"). Weight as of an earlier encounter on 08/25/24: 85.1 kg (187 lb 9.6 oz). General: generally well-nourished and in no acute distress HEENT: normocephalic, atraumatic, sclera anicteric. Psych: mood and affect normal , cooperative Card: Peripheral pulses: normal in affected extremity (s) Resp: equal chest rise, non-tachypneic, non-labored breathing Skin: no rash, normal Neuro: Sensation: normal on affected extremity (s) MSK: Gait/station/stance: antalgic gait without an assistive device on smooth flat indoor surface. Knee Exam, Bilateral Inspection: Small effusion on the right. No obvious deformity, no redness, warmth, bruising, abrasion. Palpation: tenderness to palpation medial patellar facet on the right ROM: Flexion/Neutral/Extension: L - 140/0/0, R - 140/0/0 Popliteal Angle (Hamstring Flexibility): 30 Bilateral Strength: R- Strength: Extension - 5/5 Flexion - 5/5 L - Strength: Extension - 5/5 Flexion - 5/5 Special Tests: ACL: Josh - negative Bilateral Ant Drawer: negative Bilateral PCL: Sag - negative Bilateral Post Drawer - negative Bilateral MCL: Medial Opening @ 30: negative Bilateral LCL: Lateral Opening @ 30: negative Bilateral Santa - negative Bilateral Patellar tests: Pepito's and Grind - positive on the right Crepitus - negative Radiology (I have personally reviewed the following films): X-ray of the right knee was reviewed with patient. Those x-rays show no acute fracture dislocation. Lateral patellar tilt. Assessment and Plan: Patellofemoral pain syndrome of right knee (Primary) - PHYSICAL THERAPY REFERRAL OP - XR KNEE 4 OR MORE VIEWS Recommend lateral J brace and course of physical therapy. Encouraged ice. She will follow up with atelephone visit in 6-8 weeks if symptoms persist. Grace Collins PA-C [address] [place] [address] documented in this encounter Nursing Notes * Radhika Martin LPN - 08/25/2024 10:26 AM EST NEW Pt presents to Walk In clinic Pt c/o R knee injury DOI: 08/24/24walking down steps when pt felt pain Pt unable to bear weight since yesterday Pt arrived with wearing wilberto wrap on R knee and seated in w/c Pt accompanied in w/c Pt c/o 05/08 R knee pain Pt denies hx of sx, injections or PT for her R knee Xray R knee today Su Cheatham LPN documented in this encounter Plan of Treatment Upcoming Encounters Date Type Department Care Team (Late st Contact Info) Description 10/19/2024 3:00 PM EST Telemedicine Orthopaedics [address] [place] [address] Sharer, Grace Limon PA-C [address] [place] [address] Pending Results Name Type Priority Associated Diagnoses Date /Time XR KNEE 4 OR MORE VIEWS Medical Imaging Routine Patellofemoral pain syndrome of right knee 08/25/2024 10:51 AM EST Scheduled Referrals Name Type Priority Associated Diagnoses Orde r Schedule PHYSICAL THERAPY REFERRAL OP Referral Within 30 days (routine) Patellofemoral pain syndrome of right knee Ordered: 08/25/2024 Health Maintenance Due Date Last Done Comments [...] as of this encounter Visit Diagnoses Diagnosis Patellofemoral pain syndrome of right knee- Primary documented in this encounter Care Teams Hoisting Laborer Relationship Specialty Start Date End Date Tammi Marquez DO [address] [facility], [place] [address] PCP - General Family Medicine 12/23/21 documented as of this encounter
--- OUTSIDE RECORDS SUMMARY | 2024-11-19 23:16 | External Medical Summary | Summary of Care ---
Author Name Unknown Organization [facility] Address [address] [facility] [place] [address] Phone [phone] Care Team Providers Care Kosher Sealer Name Role Phone AlmaBarryTammidevante Frey Kerenkevin DO Primary Car e Provider Reason for Visit * Reason Onset Date Comments Appointment 11/18/2024 Encounter Details Date Type Department Care Team (Late st Contact Info) Description 11/18/2024 Telephone Orthopaedics [facility] [address] [place] [phone] SharerGrace PA-C [address] [place] [address] Appointment Allergies Active Allergy Reactions Criticality Noted Date Comments Pollen Other (Please comment) High 04/08/2019 documented as of this encounter (statuses as of 11/19/2024) Medications Spacer/Aero-Hol ding Chambers DeviceIndicatio ns:COVID-19,SOB (shortness [...] as of this encounter (statuses as of 11/19/2024) Active Problems Problem Noted Date Diagnosed Date Knee pain, right 06/22/2024 Termination of (fetus) 10/21/2023 Multigravida of advanced maternal age in first t rimester 10/06/2023 Maternal asthma complicating 4 History of breast biopsy 10/06/2023 Anxiety during 10/06/2023 Reactive airway disease documented as of this encounter (statuses as of 11/19/2024) Immunizations Name Administration Dates Next Due MMR [...] encounter Miscellaneous Notes * Telephone Encounter - Tejal Purvis OSA - 11/19/2024 11:02 AM EST 11/19/24 LVM rescheduling telephone visit for 11/23/24 @ 11:00, placed this in overbook chat to be added * Telephone Encounter - Trae Nicholas OSA - 11/18/2024 9:02 AM EST Patient called in because she was supposed to have a telephone appt with Grace Sharer Oct 19, but had to cancel it. She is calling in to schedule a new appt with her. I can not schedule telephone visits with her. I did confirm her best call back number is [phone], please advise. documented in this encounter Plan of Treatment [...] Additional history exists COVID-19 Vaccine ( - 2023- season) 2024 Influenza Vaccine (FLU shot) (#1) [...] filedocumented as of this encounter Care Teams Kosher Sealer Relationship Specialty Start Date End Date Tammi Marquez DO [facility] [place] [address] PCP - General Family Medicine 12/23/21 documented as of this encounter
--- OUTSIDE RECORDS SUMMARY | 2024-11-19 23:16 | External Medical Summary | Summary of Care ---
Author Name Unknown Organization [facility] Address [address] [place] [address] Phone [phone] Care Team Providers Care Waste Handling Technician Name Role Phone Tammi Marquez Shante Staarlet DO Primary Car e Provider Reason for Visit * Reason Comments Other Right knee pain Encounter Details Date Type Department Care Team (Latest Contact Info) Description 08/25/2024 9:15 AM EST Convenient Care Visit [facility] [address] [place] [address] Sandra Hargrove CRNP [address] [place] [address] Injury of right knee, initial encounter*; Acute pain of right knee Allergies Active Allergy Reactions Criticality Noted Date [...] AM EST documented as of this encounter Last Filed Vital Signs Vital Sign Reading Time Taken Comments Blood Pressure 94/72 08/25/2024 9:14 AM EST Pulse 87 08/25/2024 9:14 AM EST Temperature 36.6 C (97.9 F) 08/25/2024 9:14 AM ES T Respiratory Rate 18 08/25/2024 9:14 AM EST Oxygen Saturation 100% 08/25/2024 9:14 AM EST Inhaled Oxygen Concentration - - Weight 85.1 kg (187 lb 9.6 oz) 08/25/2024 9:14 A M EST Height 162.6 cm (5' 4") 08/25/2024 9:14 AM EST Body Mass Index 32.2 08/25/2024 9:14 AM EST documented in this encounter Progress Notes * Sandra Hargrove CRNP - 08/25/2024 10:04 AM EST Convenient Care Basic Exam Subjective Elsa Danielson is a 43 year old female that presents to the [facility] with R knee pain. She has had some R knee discomfort off and on for a while and actually had an xray at the end of May for the same which was negative for fx or effusion. It listed "Mild quadriceps insertional enthesopathy." What brought her in today was a sharp pain felt when going down stairs last night and being nearly unable to bear weight today with ambulation. The pain is along the medial aspect of the knee. At theknee there is a warm sensation on the inside (surface not warm). She has tried using heat at home for comfort. Objective BP 94/72 | Pulse 87 | Temp 36.6 C (97.9 F) (Tympanic) | Resp 18 | Ht 1.626 m (5' 4") | Wt 85.1 kg (187 lb 9.6 oz) | SpO2 100% | No | BMI 32.20 kg/m | BSA 1.96 m Body mass index is 32.2 kg/m. Review of Systems Constitutional: Negative. HENT: Negative. Eyes: Negative. Respiratory: Negative. Cardiovascular: Negative. Gastrointestinal: Negative. Genitourinary: Negative. Musculoskeletal: R knee pain Skin: Negative. Neurological: Negative. Physical Exam Vitals and nursing note reviewed. HENT: Head: Normocephalic. Eyes: Pupils: Pupils are equal, round, and reactive to light. Cardiovascular: Rate and Rhythm: Normal rate. Pulmonary: Effort: Pulmonary effort is normal. Musculoskeletal: General: Tenderness and signs of injury present. Cervical back: Normal range of motion and neck supple. Comments: R knee pain: Pain and slight popping felt with extension of right leg while applying varus stress with external rotation. No general laxity, drawer test negative. Did not perform Josh as steep flexion at the knee was very painful. Did not perform hyperextension test also d/t pain. No visible swelling. Temperature the same across both knees. Distal DTRs and pulses normal. Skin: General: Skin is warm and dry. Capillary Refill: Capillary refill takes less than 2 seconds. Neurological: Mental Status: She is alert and oriented to person, place, and time. Past Medical History: Diagnosis Date Reactive airway disease Patient Active Problem List Diagnosis Reactive airway disease Multigravida of advanced maternal age in first trimester Maternal asthma complicating History of breast biopsy Anxiety during Termination of (fetus) Knee pain, right BP Readings from Last 3 Encounters: 08/25/24 94/72 11/04/23 116/82 10/21/23 110/56 Wt Readings from Last 3 Encounters: 08/25/24 85.1 kg (187 lb 9.6 oz) 11/04/23 82.9 kg (182 lb 11.2 oz) 10/08/23 84.3 kg (185 lb 14.4 oz) Assessment and plan Injury of right knee, initial encounter (Primary) Acute pain of right knee Jeans were skin tight and her leg was painful from the exam. Applied a temporary wilberto wrap for support over her jeans. Instructed to move the wilberto under her jeans directly over the skin once she had a chance to use the restroom so it was not over her pants for hours to reduce risk of skin injury fromwrinkles/seams of jeans. Spoke with the ortho clinic at [facility] and we decided to send her there for ease of getting thecorrect imaging ordered/approved as well as any specialty local injections or procedures. She will go directly there from here. Follow up Follow Up: Return if symptoms worsen or fail to improve. Total time today including reviewing chart before the visit, pertinent labs, imaging reports, face to face time, and documentation time was 20 minutes. The above was discussed and understanding was expressed. BELKIS Johnson documented in this encounter Nursing Notes * Daya Villatoro CMA - 08/25/2024 9:13 AM EST Elsa Danielson is a 43 year old female who presents to walk-in clinic today complaining of Chief Complaint Patient presents with Other Right knee pain Brief history:pt is present with pain in right knee, pt states no injury Onset/duration happened last nigh. Tried diclofenac Effectiveness has helped Patient is accompanied by for today's visit. documented in this encounter Plan of Treatment Upcoming Encounters Date Type Department Care Team (Late st Contact Info) Description 08/25/2024 11:30 AM EST Imaging Radiology [facility], [address] [address] Arrived Health Maintenance Due Date Last Done [...] as of this encounter Visit Diagnoses Diagnosis Injury of right knee, initial encounter- Primary Acute pain of right knee documented in this encounter Care Teams Waste Handling Technician Relationship Specialty Start Date End Date Tammi Marquez DO [address] [place] [address] PCP - General Family Medicine 12/23/21 documented as of this encounter
--- OUTSIDE RECORDS SUMMARY | 2024-11-19 23:16 | External Medical Summary | Summary of Care ---
Author Name Unknown Organization [facility] Address [address] [facility] [place] [address] Phone [phone] Care Team Providers Care Police Cadet Name Role Phone Tammi Marquez Shante Kerenarlet DO Primary Car e Provider Reason for Referral * Evaluate & Treat - Unlimited Visits (Within 30 days (routine)) - Authorized Specialty Diagnoses / Procedures Referred By Iza blake Referred To Contact Physical Therapy / Physical Medicine And Rehab Diagnoses Patellofemoral pain syndrome of right knee Grace Collins PA-C [address] [place] [address] Phone: tel: fax: Referral ID Status Reason Start Date Expiration Date Visits Requested Visits Authorized [id number] Authorized Specialty Services Required [phone] [...] 08/25/2024 10:30 AM EST Office Visit Orthopaedics [facility] [address] [place] [address] Grace Collins PA-C [address] [place] [address] Patellofemoral pain syndrome of right knee* Allergies Active Allergy Reactions Criticality Noted Date Comments Pollen Other (Please comment) High 04/08/2019 documented as of this encounter (statuses as of 08/27/2024) Medications Spacer/Aero-Hol ding Chambers DeviceIndicatio ns:COVID-19,SOB (shortness [...] as of this encounter (statuses as of 08/27/2024) Active Problems Problem Noted Date Diagnosed Date Knee pain, right 06/22/2024 Termination of (fetus) 10/21/2023 Multigravida of advanced maternal age in first t rimester 10/06/2023 Maternal asthma complicating 4 History of breast biopsy 10/06/2023 Anxiety during 10/06/2023 Reactive airway disease documented as of this encounter (statuses as of 08/27/2024) Immunizations Name Administration Dates Next Due MMR [...] old female who presents for consultation to [facility] for right knee injury/pain. [...] by Deven Valle Jr., MD at OR [facility] US GUIDED BREAST BIOPSY LEFT Left 12/05/2022 [...] Stability Do you currently live in a penitentiary or have no steady place to sleep [...] weeks if symptoms persist. Grace Collins PA-C [facility] [address] [place] [address] documented in this encounter Nursing Notes * [...] Su Cheatham LPN documented in this encounter Miscellaneous Notes * Addendum Note - Melsia Duenas CMA - 08/27/2024 10:37 AM ESTAddended by: MELISA DUENAS on: 08/27/2024 10:37 AM Modules accepted: Orders documented in this encounter Plan of Treatment Upcoming Encounters Date Type Department Care Team (Late st Contact Info) Description 10/19/2024 3:00 PM EST Telemedicine Orthopaedics [facility] [address] [place] [address] Sharer, Grace Limon PA-C [address] [place] [address] Pending Results Name Type Priority Associated Diagnoses [...] Primary documented in this encounter Care Teams Police Cadet Relationship Specialty Start Date End Date Tammi Marquez DO [facility] [place] [address] PCP - General Family Medicine 12/23/21 documented as of this encounter
--- NOTE | 2024-11-19 23:20 | Magnetic Resonance Report ---
Exam(s): MRI HEAD Without Contrast EXAM: MR Head Without Intravenous Contrast CLINICAL HISTORY: Reason for exam: Numbness/LÓPEZ/TIA. TECHNIQUE: Magnetic resonance images of the head/brain without intravenous contrast in multiple planes. COMPARISON: No relevant prior studies available. FINDINGS: Brain: Unremarkable. No mass. No hemorrhage. No acute infarct. Ventricles: Unremarkable. No ventriculomegaly. Bones/joints: Unremarkable. No acute fracture. Sinuses: Unremarkable as visualized. No acute sinusitis. Mastoid air cells: Unremarkable as visualized. No mastoid effusion. Orbits: Unremarkable as visualized. IMPRESSION: No acute intracranial abnormality. Electronically signed by: Kenneth Quiroga MD 11/19/24 23:19 PM
[2024-11-20 06:39] LABS: Chol HDL Ratio 2.5 (0-5)
[2024-11-20 07:03] LABS: Folate (Folic Acid),Ser orPlas > 22.30 ng/ml (>5.38)
[2024-11-20 07:04] LABS: Vitamin B12 662 pg/ml (180-914)
[2024-11-20 09:11] LABS: Estimated Average Glucose 111 mg/dl; Hemoglobin A1C 5.5 % (4.5-5.6)
[2024-11-20] MEDS: ENOXAPARIN INJ 40 MG/0.4 ML SYR SQ SCH (09:14)
[2024-11-20 09:25] VITALS: RESP 20
--- NOTE | 2024-11-20 09:36 | Hospitalist Progress Note ---
Date of Service November 20, 2024 Assessment & Plan (1) Numbness of face: Plan 44-year-old female PMHx asthma and anxiety presenting for right-sided numbness starting around 1200 hours on the day of arrival. No history of migraines. ED evaluation reveals no evidence of leukocytosis, normal H&H, WNL CMP, troponin less than 2.3; head CT, head CTA/neck CTA all WNL; EKG normal sinus rate 65 bpm. Telestroke consulted, recommended aspirin at that time. #Numbness/tingling R side Presenting with approximately 1 week of right-sided headache and associated right hand numbness with pins and needle sensation along right cheek, right neck, right arm, right leg to the level of the knee. Numbness/fekj-lzf-sjllwyw lasting from [id number] on the day of arrival. No history of migraines; never had this happen before. ? suspicion for TIA vs migrainous component. - Telestroke consulted; recommending aspirin and workup - Neurochecks + NIHSS - CT head/CTA head/neck WNL; Echo Bubble pending - A1c, lipids pending; Vitamin B12 + folate pending - Troponin <2.3; EKG normal sinus rate 65 bpm - Continue aspirin daily; Labetalol 10mg IV prn q10min if SBP > 200 - MRI pending 11/20- MRI brain without acute CVA. B12 checked/not deficient. Will check Lyme for possible palsy type sx for completeness Also notable MCV < 80 at 69.1 and given concerns for possible migraine component, checking iron studies, specifically FERRITIN #Anxiety/depression- Propranolol as needed, Trintellix ?Also inquire if trintellix or any new meds possibly contributing Has been on for many months Check TSH as above for completeness Dispo: Admit, med/tele VTE prophylaxis: Lovenox Admission and Anticipated Discharge Date Admission Date: November 19, 2024 Results & Data Results & Data Vital Signs (Past 12 Hours) Vital Signs Temp Pulse Pulse Resp BP BP Pulse Ox 11/20/24 09:00 37 C 79 20 93/63 L 98 11/20/24 07:58 70 11/20/24 06:27 78 15 112/75 94 11/20/24 06:06 80 21 117/69 95 11/20/24 05:30 61 20 103/60 98 11/20/24 05:00 63 13 119/68 99 11/20/24 04:30 59 L 15 107/63 98 11/20/24 04:03 72 18 121/78 98 11/20/24 03:36 47 L 17 109/73 97 11/20/24 03:00 61 18 117/64 97 11/20/24 02:39 73 20 104/72 96 11/20/24 02:06 61 17 104/66 96 11/20/24 01:06 57 L 16 98/60 L 95 11/20/24 00:39 56 L 18 96/66 L 95 11/20/24 00:00 71 17 102/54 L 95 11/19/24 23:36 62 15 97/53 L 98 11/19/24 23:00 63 15 95/65 L 94 11/19/24 22:50 61 O2 Del Method 11/20/24 09:00 Room Air 11/20/24 07:58 11/20/24 06:27 11/20/24 06:06 11/20/24 05:30 11/20/24 05:00 11/20/24 04:30 11/20/24 04:03 11/20/24 03:36 11/20/24 03:00 11/20/24 02:39 11/20/24 02:06 11/20/24 01:06 11/20/24 00:39 11/20/24 00:00 11/19/24 23:36 11/19/24 23:00 11/19/24 22:50 PG Care Time/CCT Total # of Minutes Spent Total Time Spent with Patient: Total time spent is greater than 50% in coordination of care (as documented) at patient's floor/unit and/or counseling patient: Coding Diagnoses Numbness of face R20.0
--- NOTE | 2024-11-20 10:03 | Electrocardiogram Report ---
Test Reason : Blood Pressure : */* mmHG Vent. Rate : 65 BPM Atrial Rate : 65 BPM P-R Int : 164 ms QRS Dur : 96 ms QT Int : 414 ms P-R-T Axes : 46 60 59 degrees QTcB Int : 430 ms Normal sinus rhythm Normal ECG No previous ECGs available Confirmed by Rudy Viramontes ([id number]) on 11/20/2024 10:03:28 AM Referred By: REFERRED SELF Confirmed By: Rudy Viramontes
[2024-11-20 10:10] LABS: Thyroid Stimulating Hormone 2.188 uIu/ml (0.300-4.500)
[2024-11-20 10:16] LABS: Ferritin 59.4 ng/ml (8-388)
[2024-11-20] MEDS: ACETAMINOPHEN 325 MG TAB PO PRN (10:44)
[2024-11-20] MEDS: BUTALBITAL/ACETAMIN/CAFFEINE TAB PO STA (11:38)
--- NOTE | 2024-11-20 11:42 | Discharge Summary ---
Discharge Summary Date of Service November 20, 2024 Principal Dx & Hospital Course #1 = Principal Diagnosis (1) Numbness of face: Plan 44-year-old female PMHx asthma and anxiety presented for RIGHT sided facial numbess around 1200 on 11/19 with reports of symptoms for about 1 wk of headache with shocking like sensation along right side of head and numbness/tingling R eye brown cheek, neck/arm and level of knee around 1600. Did note gets headaches quite often but no diagnosis of migraines int he past. Telestroke consulted, aspirin provided and work-up undertaken. No leukocytosis, fever, anemia, electrolyte abn. EKG stable NSR, troponin <2.3. CT head, CTA head/neck without acute abn MRI brain without acute abn, no demyelinating disease Lipid panel with TRG 39, chol 138, LDL 74, HLD 56. A1c 5.5 No HTN noted, no new medications or medication changes ECHO with normal LV, no abn or shunt. No valvular disease Iron/ferritin checked, NOT low. Notable MCV <80 - consider further eval w/ PCP but no prior for comparison. Hgb stable 13.5/no significant bleeding reported on admission Lyme checked given possible palsy, NEGATIVE. B12 not deficient Resolution in sx except mild headache, mild improvment with tylenol AM 11/20 but further discussion and reports of photophobia, poor sleep/stress and works in retail with florescent lights and suspected migraine w/ possible aura. Provided fioricet PO x 1, headache to 2/10 and feels well for discharge. Discussed sx to return but rx for Fioricet provided and recs to stay well hydrated, work on improvement in sleep and follow up PCP about possible verapamil in follow up pending further discussion vs ref to Neuro outpatient (Navigator consult placed prior to dc to arrange in event needed). Given suspected migraine, did not continue ASA daily and to return to ER with any repeat/worsening symptoms. Can continue tylenol/ibuprofen as needed for headache. #Anxiety/depression - Propranolol as needed, Trintellix. Not new medications. TSH wnl. Outpt f/u as above , consider verapamil for migraine prevention vs outpt neuro f/u Notes For Next Care Provider Aspirin deferred given negative stroke work-up and appears w more migraine sx. Did not appear w/ meningeal signs to suggest meningitis and no fever/chills prior to admission. Fioricet PO w/ improvement and short rx provided at discharge. Ref to Neuro but discussed w/ patient could cancel if not needed. Consider verapamil daily for migraine prevention. Needs to work on improvement in sleep hygiene/hydration MCV low but no prior for comparison. No rash or anemia on CBC or bleeding reported but consider f/u. B12/iron studies without abn. TSH wnl Medication Changes From Visit Fioricet 1 tablet prn migraine, #14 tablets Admission HPI Per Admitting Provider 44-year-old female PMHx asthma and anxiety presenting for right-sided numbness starting around 1200 hours on the day of arrival. Patient states that approximately 1 week ago she started to notice headache that is described as a shocking sensation that was along the right side of her head extending down into her neck on the right side and would come and go throughout the week prior to arrival. Began to notice some numbness at the R eyebrow of the day prior to arrival, but on the day of arrival she was having tingling and pins and needle sensation in the R eyebrow, cheek, neck, arm, and leg to the level of the knee. States that the symptoms lasted from approximately noon to 1600 hrs on the day of arrival. She also notes that a "few days ago" at 3 AM she was awoken by right sided head pain that went away in approximately 1 hour on its own without intervention. States that she does get headaches quite often, but no diagnosis of migraines in the past. When headaches start, she does feel that her heart is beating stronger than normal. No symptoms at the time of evaluation. Denying chest pain, SOB, palpitations, abdominal pain, N/V/D/C, weakness, syncope, lightheadedness, or dizziness. No fever or chills. Never had this happen before. ED evaluation reveals no evidence of leukocytosis, normal H&H, WNL CMP, troponin less than 2.3; head CT, head CTA/neck CTA all WNL; EKG normal sinus rate [address] Rubio's attestation for adjustments/additions to treatment plan. Admission Exam Per Admitting Provider General: No acute distress Skin: Warm and dry Head: Normocephalic, atraumatic Eyes: PERRL, conjunctivae clear, sclera non-icteric; EOM intact; wearing glasses ENT: External ear and ear canal without swelling; nose atraumatic; good dentition, tongue normal appearance, pharynx normal Neck: Supple, no LAD Cardio: RRR, no M/G/R, S1 and S2 normal Resp: No respiratory distress, Lungs CTA in all lobes bilaterally, no wheezes, rales, or rhonchi Abdomen: Soft, symmetric, nontender; No masses or hepatosplenomegaly; Bowel sounds normoactive MSK: No deformities, full ROM throughout; pulses palpable and equal; no edema. Neuro: II- PERRL, no VF deficits III, IV, - EOMs intact, no deviation, no nystagmus V- Normal sensation in all locations VII- No asymmetry VIII- Normal hearing to speech IX, X- Normal palatal elevation, no ulnar deviation XI- 5/5 head turn + shoulder shrug bilaterally XII- Midline tongue protrusion Motor: 5/5 strength throughout BUE/BLE; no pronator drift Reflexes: WNL throughout Sensory: Normal sensation throughout, no hemineglect, Romberg absent Coordination: Normal fapael-mr-lykf, no tremor Gait: Unable to asses; no complaints Psych: Tearful and feeling "nervous"; Appropriate mood and affect; good judgement and insight. does come into room during time of visit. Discharge Exam General: 44yo female resting in bed, lights off in room, +photophobia reported Head atraumatic, normocephalic, mm slightly dry, trachea midline, pupils equal in size, no meningeal signs Resp; even/unlabored, no wheezing/rales on room air CV: NSR on telemetry, no significant m/r/g no pitting edema GI: +BS, soft/NO : no pinto MSK/Neuro: moves all extremities, no focal deficits, no slurred speech, not confused, able to follow commands as asked Psych: AOx3, anxious at times but cooperative/pleasant during encounter Discharge Plan Discharge Items Patient Disposition: Home - Self-Care Reason For Visit: TIA SX Discharge Diagnosis: Facial numbness/tingling suspected migraine, rule out stroke Goals: You have been hospitalized for an acute medical problem. During your stay at [facility], we have made an effort to correct the problem that brought you to the hospital while keeping you as comfortable as possible. Medications were used to bring your condition under control and your discharge instructions will include directions for any medications you should take after leaving the hospital. Please make sure you see your Primary Care Provider as part of your follow up plan. Activity: As commented below Non-emergency contact: Primary Care Provider Call non-emergency contact if: you have any medication questions, your symptoms worsen, your pain is not controlled, your pain is concerning for you and you have a fever Follow-up/Referrals: Tammi Marquez, [Primary Care Provider] - Diet: Regular Addtl Attending Provider Instructions: You have been hospitalized for headache/numbness/tingling concerning for possible stroke. All imaging to date has been negative, Brain MRI/CT as well as CT of the neck arteries. Hemoglobin level was normal, no fever or elevated white counts. Stable kidney function and electrolytes without abnormality. Per our discussion, I wonder about possible migraine given sensitivity to light/headache and the numbness/tingling could have been what we call an "aura" that comes on prior to onset of headache. We have provided Tylenol and medication called Fioricet which can be taken as needed for abortive therapy for migraine and recommend you talk with Dr Marquez about possible medication for prevntion in follow up like verapamil but if trial is not overly infected, you may benefit from referral to Neurology which has been placed in event you need this in follow up (which can be cancelled if no further issues in follow up with primary care). Your cholesterol levels were normal and no elevated A1c to indicate diabetes. Most important to prevent migraines is to stay well hydrated, get good sleep and maintain a normal wake/sleep schedule. Please follow up with primary care in the next 7-10 days to monitor your progress after hospitalization. Please return to the ER with any fever/chills, worsening headache, chest pain, shortness of breath, or for any other symptoms concerning for you. It has been a pleasure being a part of the medical team providing for you while you have been in the hospital. Take care! Pending Studies at Discharge: No Stand-Alone Forms: My gloStream, Smoking Cessation Medications and DC Order Prescriptions: New zmwledmqfi-ldwjxrlehmzcr-ijyl [Fioricet] 50-300-40 mg capsule 1 cap PO Q8H PRN (Reason: headache) Qty: 14 0RF Continued loratadine [Claritin] 10 mg tablet 10 mg PO DAILY PRN (Reason: ALLERGIES) propranolol 10 mg tablet 10 mg PO . NEEDED PRN (Reason: FOR SITUATIONAL ANXIETY UP TO 2 A DAY) estradiol 0.01 % (0.1 mg/gram) cream 0.5 g VAGINAL TW Rx Instructions: PATIENT ONLY USES EVERY OTHER WEEK; USED LAST WEEK OF 11/19/24 albuterol sulfate 90 mcg/actuation HFA aerosol inhaler 1 puff INHALATION . EVERY 4 TO 6 HOURS PRN (Reason: CHEST TIGHTNESS) Trintellix 10 mg tablet 10 mg PO DAILY PRN (Reason: DEPRESSION) Rx Instructions: PT DOES NOT TAKE DAILY PRESCRIBED ONLY NEEDED Discharge Orders: Discharge Order (Routine); Ordered 11/20/24 Ordered By: Lashon Munoz Admission Data Admit Date/Time: 11/19/24 20:23 Attending Provider: Jeancarlos Robertson Admit Provider: Nick Rubio Primary Care Provider: Tammi Marquez Other Providers: Nick Rubio Hospital Stay Data Consultations 11/19/24 19:08 ED Decision to Admit Stat 11/20/24 11:37 Consult [facility] protector plate attacher Routine Diagnostic Imagining Performed Head CT 11/19/24 17:18 EXAM: CT Head Without Intravenous Contrast INDICATION: Right numbness and tingling. TECHNIQUE: Axial computed tomography images of the head/brain without intravenous contrast. Sagittal and/or coronal reformats are provided. Sagittal and coronal reformatted images were created and reviewed. This CT exam was performed using one or more of the following dose reduction techniques: automated exposure control, adjustment of the mA and/or kV according to patient size, and/or use of iterative reconstruction technique. COMPARISON: No relevant prior studies available. FINDINGS: Limitations: None. Brain and extra-axial spaces: No abnormality noted. No hemorrhage. No significant white matter disease. No edema. No ventriculomegaly. Bones/joints: No acute changes. Soft tissues: No significant abnormality noted. Vasculature: No acute abnormality noted. Sinuses: No layering fluid in the visualized portions of the paranasal sinuses. Mastoid air cells: No mastoid effusion. Orbits: No significant abnormality noted. IMPRESSION: No abnormality noted. Findings discussed by phone with Dr. Ervin at 5:49 PM 11/19/2024. ACT 112: Negative or not required by law. Electronically signed by Agustina Campoverde 11-19-2024 5:52 PM Head CTA 11/19/24 17:18 EXAM: CT Angiography Head and Neck With Intravenous Contrast INDICATION: Right numbness and tingling. TECHNIQUE: [place] [facility]/head and neck CT angiography protocol performed with intravenous contrast. Sagittal and coronal reformatted images were created and reviewed. This CT exam was performed using one or more of the following dose reduction techniques: automated exposure control, adjustment of the mA and/or kV according to patient size, and/or use of iterative reconstruction technique. MIP reconstructed images were created and reviewed. CONTRAST: 115ml of Optiray 320 was administered intravenously. COMPARISON: None. FINDINGS: HEAD: Right anterior cerebral artery: No abnormality noted. No occlusion or significant stenosis. Anterior communicating artery is present. No aneurysm. Right middle cerebral artery: No abnormality noted. No occlusion or significant stenosis. No aneurysm. Right posterior cerebral artery: No abnormality noted. No occlusion or significant stenosis. No aneurysm. Right intracranial internal carotid artery: No abnormality noted. No significant stenosis. No dissection or occlusion. Right intracranial vertebral artery: Dominant. No significant stenosis. No dissection or occlusion. Left anterior cerebral artery: Hypoplastic A1 segment with reconstitution via the communicating. No occlusion or significant stenosis. No aneurysm. Left middle cerebral artery: No abnormality noted. No occlusion or significant stenosis. No aneurysm. Left posterior cerebral artery: No abnormality noted. No occlusion or significant stenosis. No aneurysm. Left intracranial internal carotid artery: No abnormality noted. No significant stenosis. No dissection or occlusion. Left intracranial vertebral artery: Diminutive. No significant stenosis. No dissection or occlusion. Basilar artery: No abnormality noted. No occlusion or significant stenosis. No aneurysm. Other vasculature: No vascular malformation. Patent dural venous sinuses. NECK: Right common carotid artery: No abnormality noted. No significant stenosis. No dissection or occlusion. Right extracranial internal carotid artery: No abnormality noted. No significant stenosis. No dissection or occlusion. Right external carotid artery: No abnormality noted. No occlusion. Right extracranial vertebral artery: No abnormality noted. No significant stenosis. No dissection or occlusion. Left common carotid artery: No abnormality noted. No significant stenosis. No dissection or occlusion. Left extracranial internal carotid artery: No abnormality noted. No significant stenosis. No dissection or occlusion. Left external carotid artery: No abnormality noted. No occlusion. Left extracranial vertebral artery: Dominant. No significant stenosis. No dissection or occlusion. Lung apices: No significant abnormality noted. HEAD and NECK: Bones/joints: No significant abnormality. Soft tissues: No abnormality noted. CAROTID STENOSIS REFERENCE USING NASCET CRITERIA: % ICA stenosis = (1 - narrowest ICA diameter/diameter of distal cervical ICA) x 100. Mild - <50% stenosis. Moderate - 50-69% stenosis. Severe - 70-94% stenosis. Near occlusion - 95-99% stenosis. Occluded - 100% stenosis. IMPRESSION: Negative CTA carotid and CTA brain. Findings discussed by phone with Dr. Ervin at 5:49 PM 11/19/2024. ACT 112: Negative or not required by law. Electronically signed by Agustina Campoverde 11-19-2024 5:52 PM Neck CTA 11/19/24 17:18 EXAM: CT Angiography Head and Neck With Intravenous Contrast INDICATION: Right numbness and tingling. TECHNIQUE: [place] [facility]/head and neck CT angiography protocol performed with intravenous contrast. Sagittal and coronal reformatted images were created and reviewed. This CT exam was performed using one or more of the following dose reduction techniques: automated exposure control, adjustment of the mA and/or kV according to patient size, and/or use of iterative reconstruction technique. MIP reconstructed images were created and reviewed. CONTRAST: 115ml of Optiray 320 was administered intravenously. COMPARISON: None. FINDINGS: HEAD: Right anterior cerebral artery: No abnormality noted. No occlusion or significant stenosis. Anterior communicating artery is present. No aneurysm. Right middle cerebral artery: No abnormality noted. No occlusion or significant stenosis. No aneurysm. Right posterior cerebral artery: No abnormality noted. No occlusion or significant stenosis. No aneurysm. Right intracranial internal carotid artery: No abnormality noted. No significant stenosis. No dissection or occlusion. Right intracranial vertebral artery: Dominant. No significant stenosis. No dissection or occlusion. Left anterior cerebral artery: Hypoplastic A1 segment with reconstitution via the communicating. No occlusion or significant stenosis. No aneurysm. Left middle cerebral artery: No abnormality noted. No occlusion or significant stenosis. No aneurysm. Left posterior cerebral artery: No abnormality noted. No occlusion or significant stenosis. No aneurysm. Left intracranial internal carotid artery: No abnormality noted. No significant stenosis. No dissection or occlusion. Left intracranial vertebral artery: Diminutive. No significant stenosis. No dissection or occlusion. Basilar artery: No abnormality noted. No occlusion or significant stenosis. No aneurysm. Other vasculature: No vascular malformation. Patent dural venous sinuses. NECK: Right common carotid artery: No abnormality noted. No significant stenosis. No dissection or occlusion. Right extracranial internal carotid artery: No abnormality noted. No significant stenosis. No dissection or occlusion. Right external carotid artery: No abnormality noted. No occlusion. Right extracranial vertebral artery: No abnormality noted. No significant stenosis. No dissection or occlusion. Left common carotid artery: No abnormality noted. No significant stenosis. No dissection or occlusion. Left extracranial internal carotid artery: No abnormality noted. No significant stenosis. No dissection or occlusion. Left external carotid artery: No abnormality noted. No occlusion. Left extracranial vertebral artery: Dominant. No significant stenosis. No dissection or occlusion. Lung apices: No significant abnormality noted. HEAD and NECK: Bones/joints: No significant abnormality. Soft tissues: No abnormality noted. CAROTID STENOSIS REFERENCE USING NASCET CRITERIA: % ICA stenosis = (1 - narrowest ICA diameter/diameter of distal cervical ICA) x 100. Mild - <50% stenosis. Moderate - 50-69% stenosis. Severe - 70-94% stenosis. Near occlusion - 95-99% stenosis. Occluded - 100% stenosis. IMPRESSION: Negative CTA carotid and CTA brain. Findings discussed by phone with Dr. Ervin at 5:49 PM 11/19/2024. ACT 112: Negative or not required by law. Electronically signed by Agustina Campoverde 11-19-2024 5:52 PM Brain MRI 11/19/24 20:39 Exam(s): MRI HEAD Without Contrast EXAM: MR Head Without Intravenous Contrast CLINICAL HISTORY: Reason for exam: Numbness/LÓPEZ/TIA. TECHNIQUE: Magnetic resonance images of the head/brain without intravenous contrast in multiple planes. COMPARISON: No relevant prior studies available. FINDINGS: Brain: Unremarkable. No mass. No hemorrhage. No acute infarct. Ventricles: Unremarkable. No ventriculomegaly. Bones/joints: Unremarkable. No acute fracture. Sinuses: Unremarkable as visualized. No acute sinusitis. Mastoid air cells: Unremarkable as visualized. No mastoid effusion. Orbits: Unremarkable as visualized. IMPRESSION: No acute intracranial abnormality. Electronically signed by: Kenneth Quiroga MD 11/19/24 23:19 PM ECHOCARDIOGRAM 11/20/2024 The left ventricular systolic function is normal. No regional wma. EF 60-65%. No significant valvular pathology. No interatrial shunt. No prior study for comparison. Discharge Instructions Given to Patient (Per Discharging Provider) You have been hospitalized for headache/numbness/tingling concerning for possible stroke. All imaging to date has been negative, Brain MRI/CT as well as CT of the neck arteries. Hemoglobin level was normal, no fever or elevated white counts. Stable kidney function and electrolytes without abnormality. Per our discussion, I wonder about possible migraine given sensitivity to light/headache and the numbness/tingling could have been what we call an "aura" that comes on prior to onset of headache. We have provided Tylenol and medication called Fioricet which can be taken as needed for abortive therapy for migraine and recommend you talk with Dr Marquez about possible medication for prevntion in follow up like verapamil but if trial is not overly infected, you may benefit from referral to Neurology which has been placed in event you need this in follow up (which can be cancelled if no further issues in follow up with primary care). Your cholesterol levels were normal and no elevated A1c to indicate diabetes. Most important to prevent migraines is to stay well hydrated, get good sleep and maintain a normal wake/sleep schedule. Please follow up with primary care in the next 7-10 days to monitor your pr ogress after hospitalization. Please return to the ER with any fever/chills, worsening headache, chest pain, shortness of breath, or for any other symptoms concerning for you. It has been a pleasure being a part of the medical team providing for you while you have been in the hospital. Take care! Supervising Physician Co-Signing Physician Notes The patient was not seen by me. The chart was reviewed. Case discussed with ELIN Dwyer. Agree with assessment and plan Total Time Total Time Spent Total Time Spent (In Minutes): 35 Coding Level of Care Code 51230 INP/OBS DISCH >30 MIN Diagnoses Numbness of face R20.0
--- NOTE | 2024-11-20 12:08 | XCELERA ---
[id number] \\[id number]
--- OUTSIDE RECORDS SUMMARY | 2024-11-20 12:14 | External Medical Summary | Summary of Care ---
Author Name Unknown Organization [facility] Address [address] [place] [address] Phone [phone] Care Team Providers Care Emulsion Coater Name Role Phone Tammi Marquez Shante Staarlet DO Primary Car e Provider Reason for Visit * Reason Comments Numbness Encounter Details Date Type Department Care Team ([facility] st Contact Info) Description 11/19/2024 3:50 PM EST Convenient Care Visit [facility] [address] [place] [address] Juani Arenas CRNP [address] [place] [address] Unilateral facial paresis* Allergies Active Allergy Reactions Criticality Noted Date Comments Pollen Other (Please comment) High 04/08/2019 documented as of this encounter (statuses as of 11/20/2024) Medications Spacer/Aero-Hol ding Chambers DeviceIndicatio ns:COVID-19,SOB (shortness [...] as of this encounter (statuses as of 11/20/2024) Active Problems Problem Noted Date Diagnosed Date Knee pain, right 06/22/2024 Termination of (fetus) 10/21/2023 Multigravida of advanced maternal age in first t rimester 10/06/2023 Maternal asthma complicating 4 History of breast biopsy 10/06/2023 Anxiety during 10/06/2023 Reactive airway disease documented as of this encounter (statuses as of 11/20/2024) Immunizations Name Administration Dates Next Due MMR [...] as of this encounter Progress Notes * Juani Arenas CRNP - 11/19/2024 4:27 PM EST Patient sent to [facility] ED for further evaluation including imaging. Report called ahead. documented in this encounter Plan of Treatment Upcoming Encounters Date Type Department Care Team (Late st Contact Info) Description 11/23/2024 11:00 AM EST Telemedicine Orthopaedics [facility] [address] [place] [id number] SharerGrace PA-C [address] [place] [phone] Health Maintenance Due Date Last Done Comments [...] as of this encounter Visit Diagnoses Diagnosis Unilateral facial paresis- Primary documented in this encounter Care Teams Emulsion Coater Relationship Specialty Start Date End Date Tammi Marquez DO [address] [place] [address] PCP - General Family Medicine 12/23/21 documented as of this encounter
[2024-11-20 14:10] VITALS: BP 123/62; PULSE 77; TEMP 98.2; O2SAT 96
== END 2024-11-20 14:20 | disposition home or self-care (01) ==
LOC: EDINP 16:53 → ED 16:53 → SUATTDRO 20:23 → EDINP 23:04